=== PATIENT | female | born 1970 | race American Indian/Alaskan Native ===

== ENCOUNTER 2016-09-30 13:20 | Emergency (ER) | payer SELFPAY ==
[2016-09-30 13:44] VITALS: BP 124/80
[2016-09-30] MEDS ORDERED: TORADOL IM ONE (14:30)
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
== END 2016-09-30 15:29 | disposition home or self-care (01) ==
LOC: ED 13:20
DX: M62.838 Other muscle spasm (principal); M54.6 Pain in thoracic spine; E11.9 Type 2 diabetes mellitus without complications; F31.9 Bipolar disorder, unspecified; F20.9 Schizophrenia, unspecified; J45.909 Unspecified asthma, uncomplicated; Z98.51 Tubal ligation status
CPT/HCPCS: 96372; 99282; J1885

== ENCOUNTER 2016-11-11 12:47 | Emergency (ER) | payer SELFPAY ==
[2016-11-11 13:42] LABS: Bilirubin,Urine NEG (Negative); Blood,Urine NEG (Negative); Ketones,Urine TR mg/dL (Negative); Leukocyte Esterase,Urine NEG (Negative); Mucus,Urine 1+ /HPF; Nitrite,Urine NEG (Negative); Protein,Urine <15 mg/dL mg/dL (Negative)
[2016-11-11 14:08] LABS: Basophils % (Auto) 1.2 % (0.0-1.8); Eosinophils % (Auto) 5.7 % (0.0-4.3); Hematocrit 40.1 % (30.3-42.9); Hemoglobin 13.1 gm/dl (10.1-14.3); Mean Corpuscular HGB Conc 33 % (30-34); Mean Corpuscular Hemoglobin 31 pg (28-32); Mean Corpuscular Volume 96 fl (79-97); Platelet Count 269 K/mm3 (140-440); Red Blood Count 4.19 M/mm3 (3.65-5.03); Red Cell Distribution Width 13.6 % (13.2-15.2); White Blood Count 5.9 K/mm3 (4.5-11.0)
[2016-11-11 14:14] LABS: INR 0.95 (0.87-1.13)
[2016-11-11 14:15] LABS: Partial Thromboplastin Time 26.7 Sec. (24.2-36.6)
[2016-11-11 14:17] LABS: Alanine Aminotransferase 11 units/L (7-56); Albumin 3.4 g/dL (3.9-5); Albumin/Globulin Ratio 1.1 %; Alkaline Phosphatase 53 units/L (35-129); Anion Gap 15 mmol/L; Blood Urea Nitrogen 10 mg/dL (7-17); Calcium 8.5 mg/dL (8.4-10.2); Carbon Dioxide 24 mmol/L (22-30); Glucose 85 mg/dL (65-100); Lipase 37 units/L (13-60); Sodium 142 mmol/L (137-145); Total Protein 6.5 g/dL (6.3-8.2)
--- NOTE | 2016-11-11 17:37 | Emergency Department Report ---
ED Abdominal Pain HPI - General Chief Complaint: GI Bleed Stated Complaint: BLOOD IN STOOL/FLANK PAIN Time Seen by Provider: 11/11/16 15:16 Source: patient Mode of arrival: Ambulatory Limitations: No Limitations - History of Present Illness MD Complaint: flank pain -: Gradual Location: L flank Radiation: none Migration to: no migration Severity: moderate Severity scale (0 -10): 0 Quality: cramping, stabbing Consistency: intermittent, now resolved Improves With: nothing Worsens With: nothing Associated Symptoms: nausea. denies: vomiting, diarrhea, fever, chills, constipation, dysuria, hematemesis, hematochezia, melena, hematuria, anorexia - Related Data Home Medications Medication Instructions Recorded Confirmed Last Taken FLUoxetine [Prozac] 20 mg PO QDAY 04/26/13 11/04/14 10/05/14 Lurasidone HCl [Latuda] 20 mg PO HS 11/04/14 11/04/14 10/28/14 metFORMIN [Glucophage] 500 mg PO BID 11/04/14 11/04/14 08/10/14 Previous Rx's Medication Instructions Recorded Last Taken Type Albuterol Sulfate [Ventolin HFA] 2 puff IH Q4H PRN #1 hfa.aer.ad 11/04/14 Unknown Rx metFORMIN [Glucophage] 500 mg PO QAM #30 tablet 11/04/14 Unknown Rx Ibuprofen [Motrin] 600 mg PO Q8H PRN #15 tablet 09/30/16 Unknown Rx methOCARBAMOL [Robaxin TAB] 500 mg PO Q6H PRN #15 tablet 09/30/16 Unknown Rx Acetaminophen/Codeine [Tylenol 1 tab PO Q6H PRN #10 tab 11/11/16 Unknown Rx /Codeine # 3 tab] Allergies Allergy/AdvReac Type Severity Reaction Status Date / Time No Known Allergies Allergy Verified 08/13/15 09:19 ED Review of Systems ROS: Stated complaint: BLOOD IN STOOL/FLANK PAIN Other details as noted in HPI Constitutional: denies: chills, fever Eyes: denies: eye pain, eye discharge, vision change ENT: denies: ear pain, throat pain Respiratory: denies: cough, shortness of breath, wheezing Cardiovascular: denies: chest pain, palpitations Endocrine: no symptoms reported Gastrointestinal: denies: abdominal pain, nausea, diarrhea Genitourinary: denies: urgency, dysuria, discharge Musculoskeletal: denies: back pain, joint swelling, arthralgia Skin: denies: rash, lesions Neurological: denies: headache, weakness, paresthesias Psychiatric: denies: anxiety, depression Hematological/Lymphatic: denies: easy bleeding, easy bruising ED Past Medical Hx - Past Medical History Hx Diabetes: Yes Hx Psychiatric Treatment: Yes (BIPOLAR / SCHIZOPHRENIA) Hx Asthma: Yes Additional medical history: back problems - Surgical History Additional Surgical History: Tubal Ligation, x 1 - Social History Smoking Status: Never Smoker Substance Use Type: None - Medications Home Medications: Home Medications Medication Instructions Recorded Confirmed Last Taken Type FLUoxetine [Prozac] 20 mg PO QDAY 04/26/13 11/04/14 10/05/14 History Albuterol Sulfate [Ventolin HFA] 2 puff IH Q4H PRN #1 hfa.aer.ad 11/04/14 Unknown Rx Lurasidone HCl [Latuda] 20 mg PO HS 11/04/14 11/04/14 10/28/14 History metFORMIN [Glucophage] 500 mg PO BID 11/04/14 11/04/14 08/10/14 History metFORMIN [Glucophage] 500 mg PO QAM #30 tablet 11/04/14 Unknown Rx Ibuprofen [Motrin] 600 mg PO Q8H PRN #15 tablet 09/30/16 Unknown Rx methOCARBAMOL [Robaxin TAB] 500 mg PO Q6H PRN #15 tablet 09/30/16 Unknown Rx Acetaminophen/Codeine [Tylenol 1 tab PO Q6H PRN #10 tab 11/11/16 Unknown Rx /Codeine # 3 tab] ED Physical Exam - General Limitations: No Limitations General appearance: alert, in no apparent distress - Head Head exam: Present: atraumatic, normocephalic - Eye Eye exam: Present: normal appearance - ENT ENT exam: Present: mucous membranes moist - Neck Neck exam: Present: normal inspection - Respiratory Respiratory exam: Present: normal lung sounds bilaterally. Absent: respiratory distress - Cardiovascular Cardiovascular Exam: Present: regular rate, normal rhythm. Absent: systolic murmur, diastolic murmur, rubs, gallop - GI/Abdominal GI/Abdominal exam: Present: soft, normal bowel sounds. Absent: distended, tenderness, guarding, rebound - Extremities Exam Extremities exam: Present: normal inspection - Back Exam Back exam: Present: normal inspection - Neurological Exam Neurological exam: Present: alert, oriented X3 - Psychiatric Psychiatric exam: Present: normal affect, normal mood - Skin Skin exam: Present: warm, dry, intact, normal color. Absent: rash ED Course Vital Signs 11/11/16 11/11/16 11/11/16 13:03 15:30 15:54 Temperature 98 F Pulse Rate 60 58 L Respiratory 18 16 16 Rate Blood Pressure 117/89 Blood Pressure 97/54 [Left] O2 Sat by Pulse 100 100 100 Oximetry ED Medical Decision Making - Lab Data Result diagrams: 11/11/16 13:10 11/11/16 13:10 - Radiology Data Radiology results: report reviewed, image reviewed - Medical Decision Making patient doing well, pain is controlled, she wanted to make sure she was not , kub negative , labs negative , reexamination with no abdominal tenderness or guarding , tolerating po here in the er Critical care attestation.: If time is entered above; I have spent that time in minutes in the direct care of this critically ill patient, excluding procedure time. ED Disposition Clinical Impression: Flank pain Disposition: DISCHARGED TO HOME OR SELFCARE Is pt being admited?: No Does the pt Need Aspirin: No Condition: Good Instructions: Abdominal Pain (ED) Prescriptions: Acetaminophen/Codeine [Tylenol /Codeine # 3 tab] 1 tab PO Q6H PRN #10 tab PRN Reason: Pain , Severe (7-10) Referrals: PRIMARY CARE, [Primary Care Provider] - 3-5 Days Forms: Accompanied Note, Work/School Release Form(ED) Time of Disposition: 17:33
[2016-11-11 18:11] VITALS: BP 108/64
--- NOTE | 2016-11-12 10:31 | XRay Report ---
SUPINE KUB: History: Right flank pain. Abdominal pain. The abdominal gas pattern is unremarkable. No masses or organomegaly is identified and there is no gross evidence of free air or fluid. No significant soft tissue calcifications are noted. IMPRESSION: Unremarkable abdomen.
== END 2016-11-11 17:57 | disposition home or self-care (01) ==
LOC: ED 12:47
DX: R10.9 Unspecified abdominal pain (principal); E11.9 Type 2 diabetes mellitus without complications; F31.9 Bipolar disorder, unspecified; F20.9 Schizophrenia, unspecified; J45.909 Unspecified asthma, uncomplicated
CPT/HCPCS: 36415; 74000; 80053; 81001; 81025; 83690; 85025; 85610; 85730; 86850; 86900; 86901

== ENCOUNTER 2017-02-07 13:19 | Emergency (ER) | payer SELFPAY ==
[2017-02-07 13:42] VITALS: BP 152/95
[2017-02-07 15:48] LABS: Bilirubin,Urine NEG (Negative); Blood,Urine NEG (Negative); Ketones,Urine NEG (Negative); Leukocyte Esterase,Urine NEG (Negative); Mucus,Urine FEW /HPF; Nitrite,Urine NEG (Negative); Protein,Urine <15 mg/dL mg/dL (Negative)
[2017-02-07] MEDS ORDERED: MOTRIN PO ONE (17:13)
[2017-02-07] MEDS ORDERED: PROVENTIL IH ONE (17:13)
[2017-02-07 18:07] LABS: Basophils % (Auto) 0.9 % (0.0-1.8); Eosinophils % (Auto) 7.7 % (0.0-4.3); Hematocrit 40.7 % (30.3-42.9); Hemoglobin 13.8 gm/dl (10.1-14.3); Mean Corpuscular HGB Conc 34 % (30-34); Mean Corpuscular Hemoglobin 32 pg (28-32); Mean Corpuscular Volume 93 fl (79-97); Platelet Count 232 K/mm3 (140-440); Red Blood Count 4.37 M/mm3 (3.65-5.03); Red Cell Distribution Width 13.5 % (13.2-15.2); White Blood Count 5.8 K/mm3 (4.5-11.0)
[2017-02-07 18:16] LABS: Anion Gap 18 mmol/L; BUN/Creatinine Ratio 17.14; Blood Urea Nitrogen 12 mg/dL (7-17); Calcium 9.1 mg/dL (8.4-10.2); Carbon Dioxide 25 mmol/L (22-30); Chloride 101.6 mmol/L (98-107); Glucose 79 mg/dL (65-100); Potassium 4.4 mmol/L (3.6-5.0); Sodium 140 mmol/L (137-145)
--- NOTE | 2017-02-07 19:00 | Emergency Department Report ---
- General Chief Complaint: Upper Respiratory Infection Stated Complaint: GENERAL WEAKNESS Time Seen by Provider: 02/07/17 17:12 Source: patient Mode of arrival: Ambulatory Limitations: No Limitations - History of Present Illness MD Complaint: cough - Related Data Home Medications Medication Instructions Recorded Confirmed Last Taken FLUoxetine [Prozac] 20 mg PO QDAY 04/26/13 11/04/14 10/05/14 Lurasidone HCl [Latuda] 20 mg PO HS 11/04/14 11/04/14 10/28/14 metFORMIN [Glucophage] 500 mg PO BID 11/04/14 11/04/14 08/10/14 Previous Rx's Medication Instructions Recorded Last Taken Type Albuterol Sulfate [Ventolin HFA] 2 puff IH Q4H PRN #1 hfa.aer.ad 11/04/14 Unknown Rx metFORMIN [Glucophage] 500 mg PO QAM #30 tablet 11/04/14 Unknown Rx Ibuprofen [Motrin] 600 mg PO Q8H PRN #15 tablet 09/30/16 Unknown Rx methOCARBAMOL [Robaxin TAB] 500 mg PO Q6H PRN #15 tablet 09/30/16 Unknown Rx Acetaminophen/Codeine [Tylenol 1 tab PO Q6H PRN #10 tab 11/11/16 Unknown Rx /Codeine # 3 tab] ALBUTEROL Inhaler [ProAir HFA 2 puff IH QID PRN #1 inhalation 02/07/17 Unknown Rx Inhaler] Azithromycin [Zithromax Z-STEPHANY] 250 mg PO QDAY #6 tablet 02/07/17 Unknown Rx Naproxen [Naprosyn TAB] 375 mg PO BID PRN #15 tablet 02/07/17 Unknown Rx Prednisone [predniSONE 5 mg (6-Day 5 mg PO .TAPER #1 tab.ds.pk 02/07/17 Unknown Rx Pack, 21 Tabs)] guaiFENesin DM [Robitussin Dm] 10 ml PO Q6HR PRN #1 bottle 02/07/17 Unknown Rx Allergies Allergy/AdvReac Type Severity Reaction Status Date / Time No Known Allergies Allergy Verified 08/13/15 09:19 ED Review of Systems ROS: Stated complaint: GENERAL WEAKNESS Other details as noted in HPI ED Past Medical Hx - Past Medical History Hx Diabetes: Yes Hx Psychiatric Treatment: Yes (BIPOLAR / SCHIZOPHRENIA) Hx Asthma: Yes Additional medical history: back problems - Surgical History Additional Surgical History: Tubal Ligation, x 1 - Social History Smoking Status: Never Smoker Substance Use Type: None - Medications Home Medications: Home Medications Medication Instructions Recorded Confirmed Last Taken Type FLUoxetine [Prozac] 20 mg PO QDAY 04/26/13 11/04/14 10/05/14 History Albuterol Sulfate [Ventolin HFA] 2 puff IH Q4H PRN #1 hfa.aer.ad 11/04/14 Unknown Rx Lurasidone HCl [Latuda] 20 mg PO HS 11/04/14 11/04/14 10/28/14 History metFORMIN [Glucophage] 500 mg PO BID 11/04/14 11/04/14 08/10/14 History metFORMIN [Glucophage] 500 mg PO QAM #30 tablet 11/04/14 Unknown Rx Ibuprofen [Motrin] 600 mg PO Q8H PRN #15 tablet 09/30/16 Unknown Rx methOCARBAMOL [Robaxin TAB] 500 mg PO Q6H PRN #15 tablet 09/30/16 Unknown Rx Acetaminophen/Codeine [Tylenol 1 tab PO Q6H PRN #10 tab 11/11/16 Unknown Rx /Codeine # 3 tab] ALBUTEROL Inhaler [ProAir HFA 2 puff IH QID PRN #1 inhalation 02/07/17 Unknown Rx Inhaler] Azithromycin [Zithromax Z-STEPHANY] 250 mg PO QDAY #6 tablet 02/07/17 Unknown Rx Naproxen [Naprosyn TAB] 375 mg PO BID PRN #15 tablet 02/07/17 Unknown Rx Prednisone [predniSONE 5 mg (6-Day 5 mg PO .TAPER #1 tab.ds.pk 02/07/17 Unknown Rx Pack, 21 Tabs)] guaiFENesin DM [Robitussin Dm] 10 ml PO Q6HR PRN #1 bottle 02/07/17 Unknown Rx ED Physical Exam - General Limitations: No Limitations ED Course Vital Signs 02/07/17 02/07/17 13:35 17:52 Temperature 98.5 F Pulse Rate 95 H Pulse Rate [ 52 L Bilateral] Pulse Rate [ 74 Throughout] Respiratory 18 Rate Respiratory 18 Rate [Bilateral ] Respiratory 18 Rate [ Throughout] Blood Pressure 152/95 O2 Sat by Pulse 100 Oximetry ED Medical Decision Making - Lab Data Result diagrams: 02/07/17 17:47 02/07/17 17:47 - Medical Decision Making A/P: Acute bronchitis, asthma exacerbation 1-prednisone, albuterol, azithromycin, naproxen 2-xray unremarkable 3-labwork unremarkable Critical care attestation.: If time is entered above; I have spent that time in minutes in the direct care of this critically ill patient, excluding procedure time. ED Disposition Clinical Impression: Acute bronchitis Qualifiers: Bronchitis organism: unspecified organism Qualified Code(s): J20.9 - Acute bronchitis, unspecified Reactive airway disease Qualifiers: Asthma severity: mild intermittent Asthma complication type: uncomplicated Qualified Code(s): J45.20 - Mild intermittent asthma, uncomplicated Disposition: TO HOME OR SELFCARE Is pt being admited?: No Does the pt Need Aspirin: No Condition: Stable Instructions: Acute Bronchitis (ED), Reactive Airways Disease (ED) Prescriptions: ALBUTEROL Inhaler [ProAir HFA Inhaler] 2 puff IH QID PRN #1 inhalation PRN Reason: Shortness Of Breath Azithromycin [Zithromax Z-STEPHANY] 250 mg PO QDAY #6 tablet guaiFENesin DM [Robitussin Dm] 10 ml PO Q6HR PRN #1 bottle PRN Reason: Cough Naproxen [Naprosyn TAB] 375 mg PO BID PRN #15 tablet PRN Reason: Cough Prednisone [predniSONE 5 mg (6-Day Pack, 21 Tabs)] 5 mg PO .TAPER #1 tab.ds.pk Referrals: [facility] [Provider Group] - 3-5 Days [facility] [Outside] - 3-5 Days Forms: Accompanied Note, Work/School Release Form(ED) Time of Disposition: 18:57
--- NOTE | 2017-02-08 07:31 | XRay Report ---
CHEST 2 VIEWS INDICATION: Worsening cough. COMPARISON: None similar. FINDINGS: PA and lateral chest radiographs demonstrate normal cardiomediastinal silhouette. Clear lungs. Slight mid thoracic spine degenerative endplate spurring. CONCLUSION: No acute disease in the chest. Thank you for the opportunity to participate in this patient's care.
== END 2017-02-07 19:05 | disposition home or self-care (01) ==
LOC: ED 13:19
DX: J45.909 Unspecified asthma, uncomplicated (principal); J20.9 Acute bronchitis, unspecified; E11.9 Type 2 diabetes mellitus without complications; F31.9 Bipolar disorder, unspecified; F20.9 Schizophrenia, unspecified; Z98.51 Tubal ligation status
CPT/HCPCS: 36415; 71020; 80048; 81001; 81025; 83735; 85025; 94640; 99284

== ENCOUNTER 2017-06-19 15:20 | Emergency (ER) | payer SELFPAY ==
[2017-06-19 16:51] VITALS: BP 114/74
== END 2017-06-19 22:35 | disposition left against medical advice (07) ==
LOC: ED 15:20
DX: T14.8XXA Other injury of unspecified body region, initial encounter (principal); X58.XXXA Exposure to other specified factors, initial encounter; Y93.89 Activity, other specified; Y92.89 Other specified places as the place of occurrence of the external cause; Y99.8 Other external cause status; Z53.21 Procedure and treatment not carried out due to patient leaving prior to being seen by health care provider

== ENCOUNTER 2017-07-10 13:01 | Emergency (ER) | payer SELFPAY ==
[2017-07-10 14:35] VITALS: BP 114/54
[2017-07-10] MEDS ORDERED: TORADOL IM ONE (19:33)
--- NOTE | 2017-07-10 19:34 | Emergency Department Report ---
ED Back Pain/Injury HPI - General Chief Complaint: Extremity Injury, Lower Stated Complaint: HIP PAIN Time Seen by Provider: 07/10/17 19:06 Source: patient Limitations: No Limitations - History of Present Illness Initial Comments: This is a 47-year-old female nontoxic, well nourished in appearance, no acute signs of distress presents to the ED with c/o of chronic intermittent low back pain. Patient stated she had several rounds of xrays and all within normal limits. Patient denies any trauma to the region. Patient denies follow-up with PCP for possible MRI as she stated symptoms resolves after medical treatment. Patient stated that symptoms of low back pain radiates towards her left hip and left lower extremity. Patient denies any trauma to the region. Patient also stated had a headache that she describes as aching diffusely but there is headache has subsided. Patient denies thunderclap headache. Denies any blurry vision or visual changes. Patient denies any bladder or bowel instability. Patient denies any chest pain, shortness of breath, dysuria, polyuria, hematuria , fever, chills, nausea, vomiting, headache, stiff neck, numbness or tingling. Patient describes pain as aching with level of 8 out of 10. Patient states symptoms are worse the past 4 days. 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 Patient denies any drug allergies. Past medical history includes diabetes, asthma, psychiatric. MD Complaint: back pain -: days(s) (4) Similar Symptoms Previously: Yes Place: work Radiation: left leg Severity: mild Severity scale (0 -10): 8 Quality: aching Consistency: constant Improves With: immobilization, supine, sitting upright Worsens With: movement, walking Associated Symptoms: denies other symptoms. denies: confusion, weakness, chest pain, numbness, difficulty walking, cough, difficulty urinating, diaphoresis, incontinence, fever/chills, constipation, headaches, abdominal pain, loss of appetite, malaise, nausea/vomiting, rash, seizure, shortness of breath, syncope - Related Data Home Medications Medication Instructions Recorded Confirmed Last Taken FLUoxetine [Prozac] 20 mg PO QDAY 04/26/13 11/04/14 10/05/14 Lurasidone HCl [Latuda] 20 mg PO HS 05/26/15 05/26/15 05/19/15 metFORMIN [Glucophage] 500 mg PO BID 11/04/14 11/04/14 08/10/14 Previous Rx's Medication Instructions Recorded Last Taken Type Albuterol Sulfate [Ventolin HFA] 2 puff IH Q4H PRN #1 hfa.aer.ad 11/04/14 Unknown Rx metFORMIN [Glucophage] 500 mg PO QAM #30 tablet 11/04/14 Unknown Rx Ibuprofen [Motrin] 600 mg PO Q8H PRN #15 tablet 09/30/16 Unknown Rx methOCARBAMOL [Robaxin TAB] 500 mg PO Q6H PRN #15 tablet 09/30/16 Unknown Rx Acetaminophen/Codeine [Tylenol 1 tab PO Q6H PRN #10 tab 11/11/16 Unknown Rx /Codeine # 3 tab] ALBUTEROL Inhaler [ProAir HFA 2 puff IH QID PRN #1 inhalation 02/07/17 Unknown Rx Inhaler] Azithromycin [Zithromax Z-STEPHANY] 250 mg PO QDAY #6 tablet 02/07/17 Unknown Rx Naproxen [Naprosyn TAB] 375 mg PO BID PRN #15 tablet 02/07/17 Unknown Rx Prednisone [predniSONE 5 mg (6-Day 5 mg PO .TAPER #1 tab.ds.pk 02/07/17 Unknown Rx Pack, 21 Tabs)] guaiFENesin DM [Robitussin Dm] 10 ml PO Q6HR PRN #1 bottle 02/07/17 Unknown Rx Cyclobenzaprine [Flexeril] 10 mg PO QHS PRN #7 tablet 07/10/17 Unknown Rx Ibuprofen [Motrin] 600 mg PO Q8H PRN #30 tablet 07/10/17 Unknown Rx Allergies Allergy/AdvReac Type Severity Reaction Status Date / Time No Known Allergies Allergy Verified 08/13/15 09:19 ED Review of Systems ROS: Stated complaint: HIP PAIN Other details as noted in HPI Constitutional: denies: chills, fever Eyes: denies: eye pain, eye discharge, vision change ENT: denies: ear pain, throat pain Respiratory: denies: cough, shortness of breath, wheezing Cardiovascular: denies: chest pain, palpitations Endocrine: no symptoms reported Gastrointestinal: denies: abdominal pain, nausea, diarrhea Genitourinary: denies: urgency, dysuria, discharge Musculoskeletal: back pain. denies: joint swelling, arthralgia Skin: denies: rash, lesions Neurological: denies: headache, weakness, paresthesias Psychiatric: denies: anxiety, depression Hematological/Lymphatic: denies: easy bleeding, easy bruising ED Past Medical Hx - Past Medical History Previous Medical History?: Yes Hx Diabetes: Yes Hx Psychiatric Treatment: Yes (BIPOLAR / SCHIZOPHRENIA) Hx Asthma: Yes Additional medical history: back problems - Surgical History Past Surgical History?: Yes Additional Surgical History: Tubal Ligation, x 1 - Social History Smoking Status: Never Smoker Substance Use Type: Alcohol - Medications Home Medications: Home Medications Medication Instructions Recorded Confirmed Last Taken Type FLUoxetine [Prozac] 20 mg PO QDAY 04/26/13 11/04/14 10/05/14 History Albuterol Sulfate [Ventolin HFA] 2 puff IH Q4H PRN #1 hfa.aer.ad 11/04/14 Unknown Rx Lurasidone HCl [Latuda] 20 mg PO HS 11/04/14 11/04/14 10/28/14 History metFORMIN [Glucophage] 500 mg PO BID 11/04/14 11/04/14 08/10/14 History metFORMIN [Glucophage] 500 mg PO QAM #30 tablet 11/04/14 Unknown Rx Ibuprofen [Motrin] 600 mg PO Q8H PRN #15 tablet 09/30/16 Unknown Rx methOCARBAMOL [Robaxin TAB] 500 mg PO Q6H PRN #15 tablet 09/30/16 Unknown Rx Acetaminophen/Codeine [Tylenol 1 tab PO Q6H PRN #10 tab 11/11/16 Unknown Rx /Codeine # 3 tab] ALBUTEROL Inhaler [ProAir HFA 2 puff IH QID PRN #1 inhalation 02/07/17 Unknown Rx Inhaler] Azithromycin [Zithromax Z-STEPHANY] 250 mg PO QDAY #6 tablet 02/07/17 Unknown Rx Naproxen [Naprosyn TAB] 375 mg PO BID PRN #15 tablet 02/07/17 Unknown Rx Prednisone [predniSONE 5 mg (6-Day 5 mg PO .TAPER #1 tab.ds.pk 02/07/17 Unknown Rx Pack, 21 Tabs)] guaiFENesin DM [Robitussin Dm] 10 ml PO Q6HR PRN #1 bottle 02/07/17 Unknown Rx Cyclobenzaprine [Flexeril] 10 mg PO QHS PRN #7 tablet 07/10/17 Unknown Rx Ibuprofen [Motrin] 600 mg PO Q8H PRN #30 tablet 07/10/17 Unknown Rx ED Physical Exam - General Limitations: No Limitations General appearance: alert, in no apparent distress - Head Head exam: Present: atraumatic, normocephalic - Eye Eye exam: Present: normal appearance - ENT ENT exam: Present: mucous membranes moist - Neck Neck exam: Present: normal inspection, full ROM. Absent: tenderness, meningismus, lymphadenopathy, thyromegaly - Respiratory Respiratory exam: Present: normal lung sounds bilaterally. Absent: respiratory distress, wheezes, rales, rhonchi, stridor, chest wall tenderness, accessory muscle use, decreased breath sounds, prolonged expiratory - Cardiovascular Cardiovascular Exam: Present: regular rate, normal rhythm, normal heart sounds. Absent: bradycardia, tachycardia, irregular rhythm, systolic murmur, diastolic murmur, rubs, gallop - GI/Abdominal GI/Abdominal exam: Present: soft, normal bowel sounds. Absent: distended, tenderness, guarding, rebound, rigid, diminished bowel sounds - Rectal Rectal exam: Present: deferred - Extremities Exam Extremities exam: Present: normal inspection, full ROM, normal capillary refill. Absent: tenderness, pedal edema, joint swelling, calf tenderness - Expanded Lower Extremity Exam Left Hip exam: Present: normal inspection, full ROM, external rotation, internal rotation, pelvic stability. Absent: tenderness, swelling, abrasion, laceration , ecchymosis, deformity, crepidus, dislocation, erythema, shortening Upper Leg exam: Present: normal inspection, full ROM Knee exam: Present: normal inspection, full ROM, full knee extension Lower Leg exam: Present: normal inspection, full ROM. Absent: Eduar's sign Ankle exam: Present: normal inspection, full ROM Foot/Toe exam: Present: normal inspection, full ROM Neuro vascular tendon exam: Present: no vascular compromise. Absent: pulse deficit, abnormal cap refill, motor deficit, sensory deficit, tendon deficit, extremity cold to touch, pallor, abnormal 2-point discrimination, decreased fine /light touch, foot drop, peroneal nerve deficit, significant pain with passive ROM of distal joint Gait: Positive: observed and normal - Back Exam Back exam: Present: normal inspection, full ROM, paraspinal tenderness (lumbar region). Absent: tenderness, CVA tenderness (R), CVA tenderness (L), vertebral tenderness, rash noted - Expanded Back Exam Expanded Back exam: Absent: saddle anesthesia Back exam: Negative Straight Leg Raising: Left, Right - Neurological Exam Neurological exam: Present: alert, oriented X3 - Psychiatric Psychiatric exam: Present: normal affect, normal mood - Skin Skin exam: Present: warm, dry, intact, normal color. Absent: rash ED Course Vital Signs 07/10/17 14:32 Temperature 98.3 F Pulse Rate 65 Respiratory 16 Rate Blood Pressure 114/54 O2 Sat by Pulse 100 Oximetry ED Medical Decision Making - Medical Decision Making this is a 47-year-old female that presents with low back strain, lumbar radiculopathy, and diabetic neuropathy. Patient is stable and was examined by me. Patient received Toradol 30 mg IM in the ED which patient states symptoms has resolved and has subsided. Patient states the symptoms are intermittent chronically. I will treat patient with Flexeril and Motrin discharge. Patient was instructed not to operate any machinery while taking Flexeril due to drowsiness. Patient was instructed Follow-up with a primary care doctor in 3-5 days or if symptoms worsen and continue return to emergency room as soon as possible. At time time of discharge, the patient does not seem toxic or ill in appearance. No acute signs of distress noted. Patient agrees to discharge treatment plan of care. No further questions noted by the patient. Critical care attestation.: If time is entered above; I have spent that time in minutes in the direct care of this critically ill patient, excluding procedure time. ED Disposition Clinical Impression: Lumbar radiculopathy Low back strain Qualifiers: Encounter type: initial encounter Qualified Code(s): S39.012A - Strain of muscle, fascia and tendon of lower back, initial encounter Diabetic neuropathy Qualifiers: Diabetes mellitus type: other specified (including EDDIE) Diabetes mellitus complication detail: with other neurological complication Qualified Code(s): E13.49 - Other specified diabetes mellitus with other diabetic neurological complication Disposition: -01 TO HOME OR SELFCARE Is pt being admited?: No Does the pt Need Aspirin: No Condition: Stable Instructions: Low Back Strain (ED), Cyclobenzaprine (By mouth), Ibuprofen (By mouth), Diabetic Neuropathy (ED), Lumbar Radiculopathy (ED) Additional Instructions: Follow-up with your primary care doctor in 3-5 days or if symptoms worsen such as bladder or bowel stability, chest pain, short of breath, numbness or tingling sensation in extremities, headache, dizziness, visual changes, nausea vomiting, or abdominal pain, return back to emergency room as was possible. Take ibuprofen and Flexeril as prescribed. Do not operate heavy machinery while taking Flexeril due to sedation Prescriptions: Cyclobenzaprine [Flexeril] 10 mg PO QHS PRN #7 tablet PRN Reason: Muscle Spasm Ibuprofen [Motrin] 600 mg PO Q8H PRN #30 tablet PRN Reason: Pain Referrals: PRIMARY CARE, [Referring] - 3-5 Days LILIYA IZQUIERDO MD [Staff Physician] - 3-5 Days [facility] [Outside] - 3-5 Days [facility] [Outside] - 3-5 Days Forms: Work/School Release Form(ED)
== END 2017-07-10 19:50 | disposition home or self-care (01) ==
LOC: ED 13:01
DX: S39.012A Strain of muscle, fascia and tendon of lower back, initial encounter (principal); E13.49 Other specified diabetes mellitus with other diabetic neurological complication; F31.9 Bipolar disorder, unspecified; F20.9 Schizophrenia, unspecified; J45.909 Unspecified asthma, uncomplicated; Z98.51 Tubal ligation status; X58.XXXA Exposure to other specified factors, initial encounter; Y93.89 Activity, other specified; Y92.89 Other specified places as the place of occurrence of the external cause; Y99.8 Other external cause status
CPT/HCPCS: 96372; 99282; J1885

== ENCOUNTER 2017-11-29 20:02 | Emergency (ER) | payer SELFPAY ==
[2017-11-29 20:14] VITALS: BP 113/71
--- NOTE | 2017-11-29 23:41 | Emergency Department Report ---
ED Extremity Problem HPI - General Chief complaint: Extremity Problem,Nontraumatic Stated complaint: LT HEEL PAIN Time Seen by Provider: 11/29/17 23:25 Source: patient Mode of arrival: Ambulatory Limitations: No Limitations - History of Present Illness Initial comments: 47-year-old -[place] female comes in complaining of left foot pain 2 weeks. Patient reports is the same pain that she felt when she had plantar fasciitis. Patient reports that most of the pain is in the back heel of her foot in the instep. Patient reports that she is a diabetic but is not currently on any medication as she doesn't have any insurance. Patient denies any trauma to the foot did not stepping on anything or been hard. Patient reports she has not taken any pain medications for this at this time. Patient also complains of a bump on her pubic symphysis that has a foul smell and now was opened. Patient denies any fever chills no nausea no vomiting. Location: left Severity scale (0 -10): 10 Consistency: constant Improves with: rest Worsens with: weight bearing, walking - Related Data Home Medications Medication Instructions Recorded Confirmed Last Taken FLUoxetine [Prozac] 20 mg PO QDAY 04/26/13 11/04/14 10/05/14 Lurasidone HCl [Latuda] 20 mg PO HS 11/04/14 11/04/14 10/28/14 metFORMIN [Glucophage] 500 mg PO BID 11/04/14 11/04/14 08/10/14 Previous Rx's Medication Instructions Recorded Last Taken Type Albuterol Sulfate [Ventolin HFA] 2 puff IH Q4H PRN #1 hfa.aer.ad 11/04/14 Unknown Rx metFORMIN [Glucophage] 500 mg PO QAM #30 tablet 11/04/14 Unknown Rx Ibuprofen [Motrin] 600 mg PO Q8H PRN #15 tablet 09/30/16 Unknown Rx methOCARBAMOL [Robaxin TAB] 500 mg PO Q6H PRN #15 tablet 09/30/16 Unknown Rx Acetaminophen/Codeine [Tylenol 1 tab PO Q6H PRN #10 tab 11/11/16 Unknown Rx /Codeine # 3 tab] ALBUTEROL Inhaler [ProAir HFA 2 puff IH QID PRN #1 inhalation 02/07/17 Unknown Rx Inhaler] Azithromycin [Zithromax Z-STEPHANY] 250 mg PO QDAY #6 tablet 02/07/17 Unknown Rx Naproxen [Naprosyn TAB] 375 mg PO BID PRN #15 tablet 02/07/17 Unknown Rx Prednisone [predniSONE 5 mg (6-Day 5 mg PO .TAPER #1 tab.ds.pk 02/07/17 Unknown Rx Pack, 21 Tabs)] guaiFENesin DM [Robitussin Dm] 10 ml PO Q6HR PRN #1 bottle 02/07/17 Unknown Rx Cyclobenzaprine [Flexeril] 10 mg PO QHS PRN #7 tablet 07/10/17 Unknown Rx Ibuprofen [Motrin] 600 mg PO Q8H PRN #30 tablet 07/10/17 Unknown Rx Cephalexin [Keflex] 250 mg PO Q6HR #40 capsule 11/30/17 Unknown Rx Ibuprofen [Motrin 800 MG tab] 800 mg PO Q8HR #30 tablet 11/30/17 Unknown Rx Allergies Allergy/AdvReac Type Severity Reaction Status Date / Time No Known Allergies Allergy Verified 08/13/15 09:19 ED Review of Systems ROS: Stated complaint: LT HEEL PAIN Other details as noted in HPI Constitutional: denies: chills, fever Eyes: denies: eye pain, eye discharge, vision change Musculoskeletal: arthralgia (bottom of left foot and heel) Skin: lesions (bump on suprapubic) Neurological: denies: headache, weakness, paresthesias Psychiatric: denies: anxiety, depression ED Past Medical Hx - Past Medical History Previous Medical History?: Yes Hx Diabetes: Yes Hx Psychiatric Treatment: Yes (BIPOLAR / SCHIZOPHRENIA) Hx Asthma: Yes Additional medical history: back problems - Surgical History Past Surgical History?: Yes Additional Surgical History: Tubal Ligation, x 1 - Social History Smoking Status: Never Smoker Substance Use Type: Alcohol - Medications Home Medications: Home Medications Medication Instructions Recorded Confirmed Last Taken Type FLUoxetine [Prozac] 20 mg PO QDAY 04/26/13 11/04/14 10/05/14 History Albuterol Sulfate [Ventolin HFA] 2 puff IH Q4H PRN #1 hfa.aer.ad 11/04/14 Unknown Rx Lurasidone HCl [Latuda] 20 mg PO HS 11/04/14 11/04/14 10/28/14 History metFORMIN [Glucophage] 500 mg PO BID 11/04/14 11/04/14 08/10/14 History metFORMIN [Glucophage] 500 mg PO QAM #30 tablet 11/04/14 Unknown Rx Ibuprofen [Motrin] 600 mg PO Q8H PRN #15 tablet 09/30/16 Unknown Rx methOCARBAMOL [Robaxin TAB] 500 mg PO Q6H PRN #15 tablet 09/30/16 Unknown Rx Acetaminophen/Codeine [Tylenol 1 tab PO Q6H PRN #10 tab 11/11/16 Unknown Rx /Codeine # 3 tab] ALBUTEROL Inhaler [ProAir HFA 2 puff IH QID PRN #1 inhalation 02/07/17 Unknown Rx Inhaler] Azithromycin [Zithromax Z-STEPHANY] 250 mg PO QDAY #6 tablet 02/07/17 Unknown Rx Naproxen [Naprosyn TAB] 375 mg PO BID PRN #15 tablet 02/07/17 Unknown Rx Prednisone [predniSONE 5 mg (6-Day 5 mg PO .TAPER #1 tab.ds.pk 02/07/17 Unknown Rx Pack, 21 Tabs)] guaiFENesin DM [Robitussin Dm] 10 ml PO Q6HR PRN #1 bottle 02/07/17 Unknown Rx Cyclobenzaprine [Flexeril] 10 mg PO QHS PRN #7 tablet 07/10/17 Unknown Rx Ibuprofen [Motrin] 600 mg PO Q8H PRN #30 tablet 07/10/17 Unknown Rx Cephalexin [Keflex] 250 mg PO Q6HR #40 capsule 11/30/17 Unknown Rx Ibuprofen [Motrin 800 MG tab] 800 mg PO Q8HR #30 tablet 11/30/17 Unknown Rx ED Physical Exam - General Limitations: No Limitations General appearance: alert, in no apparent distress - Head Head exam: Present: atraumatic, normocephalic - Expanded Lower Extremity Exam Left Hip exam: Present: normal inspection, full ROM. Absent: tenderness Upper Leg exam: Present: normal inspection, full ROM. Absent: tenderness Knee exam: Present: normal inspection, full ROM. Absent: tenderness Lower Leg exam: Present: normal inspection, full ROM. Absent: tenderness Foot/Toe exam: Present: full ROM, tenderness (plantar). Absent: swelling, abrasion, laceration, ecchymosis, deformity, erythema, puncture wound Neuro vascular tendon exam: Present: no vascular compromise Gait: Positive: antalgic - Neurological Exam Neurological exam: Present: alert, oriented X3 - Psychiatric Psychiatric exam: Present: normal affect, normal mood - Expanded Skin Exam Expanded Distribution of rash: genitals (suprapubic) Description of rash: Present: size (pimple size opening) ED Course Vital Signs 11/29/17 20:10 Temperature 97.9 F Pulse Rate 66 Respiratory 18 Rate Blood Pressure 113/71 O2 Sat by Pulse 10 L Oximetry ED Medical Decision Making - Medical Decision Making Patient's been evaluated by this provider fast track. Ibuprofen ordered a pain management of left foot. Would discharge patient ibuprofen for pain management of her left foot. I will place patient on antibiotics for her for mouth abscess to her suprapubic area. Discussed strongly with patient that she needs to follow-up with [facility] for management of her diabetes and chronic disease management. Patient verbalized understanding. Critical care attestation.: If time is entered above; I have spent that time in minutes in the direct care of this critically ill patient, excluding procedure time. ED Disposition Clinical Impression: Carbuncle, Arch pain of left foot Disposition: [id number]-01 TO HOME OR SELFCARE Is pt being admited?: No Does the pt Need Aspirin: No Condition: Stable Instructions: Furunculosis and Carbunculosis (ED), Arthralgia (ED) Additional Instructions: Complete antibiotic as prescribed take pain medication as needed follow-up with [facility]. Prescriptions: Cephalexin [Keflex] 250 mg PO Q6HR #40 capsule Ibuprofen [Motrin 800 MG tab] 800 mg PO Q8HR #30 tablet Referrals: ANTOINE CRUZ MD [Primary Care Provider] - 3-5 Days [facility] [Provider Group] - 3-5 Days Forms: Work/School Release Form(ED)
[2017-11-29] MEDS ORDERED: TRIMOX PO ONE (23:50)
[2017-11-30] MEDS ORDERED: MOTRIN PO ONE (00:27)
== END 2017-11-30 00:50 | disposition home or self-care (01) ==
LOC: ED 20:02
DX: L02.632 Carbuncle of left foot (principal); E11.9 Type 2 diabetes mellitus without complications; F31.9 Bipolar disorder, unspecified; F20.9 Schizophrenia, unspecified; J45.909 Unspecified asthma, uncomplicated; Z98.51 Tubal ligation status
CPT/HCPCS: 99282

== ENCOUNTER 2018-07-20 07:42 | Emergency (ER) | payer SELFPAY ==
[2018-07-20 07:47] VITALS: BP 137/81
[2018-07-20] MEDS ORDERED: ROBITUSSIN PO ONE (08:12)
[2018-07-20] MEDS ORDERED: DELTASONE PO ONE (08:13)
--- NOTE | 2018-07-20 08:42 | XRay Report ---
ROUTINE CHEST, TWO VIEWS: HISTORY: Productive cough. The trachea, heart, mediastinal contour, lung mai and bony thorax are unremarkable. IMPRESSION: Unremarkable chest x-ray. No change since 02/07/17.
--- NOTE | 2018-07-20 08:49 | Emergency Department Report ---
Minor Respiratory - HPI Chief Complaint: Sore Throat Stated Complaint: SORE THROAT COUGHING Time Seen by Provider: 07/20/18 08:01 Duration: 4 Days Pain Location: Throat Severity: mild Minor Respiratory: Yes Able to Tolerate Fluids, Yes Cough, No Rhinorrhea, No Sore Throat, No Ear Pain, No Sick Contacts, No Hemoptysis, No Chest Pain, No Shortness of Breath, No Fever Other History: 48-year-old female presents with greenish productive cough with sore throat has been going on for several days. Patient denies fevers/nausea vomiting/abdominal pain/chest pain or shortness of breath. Patient mentions history of asthma as a child. ED Review of Systems ROS: Stated complaint: SORE THROAT COUGHING Other details as noted in HPI Comment: All other systems reviewed and negative ED Past Medical Hx - Past Medical History Hx Diabetes: Yes Hx Psychiatric Treatment: Yes (BIPOLAR / SCHIZOPHRENIA) Hx Asthma: Yes Additional medical history: back problems - Surgical History Additional Surgical History: Tubal Ligation, x 1 - Social History Smoking Status: Never Smoker Substance Use Type: None - Medications Home Medications: Home Medications Medication Instructions Recorded Confirmed Last Taken Type FLUoxetine [Prozac] 20 mg PO QDAY 04/26/13 11/04/14 10/05/14 History Albuterol Sulfate [Ventolin HFA] 2 puff IH Q4H PRN #1 hfa.aer.ad 11/04/14 Unknown Rx Lurasidone HCl [Latuda] 20 mg PO HS 11/04/14 11/04/14 10/28/14 History metFORMIN [Glucophage] 500 mg PO BID 11/04/14 11/04/14 08/10/14 History metFORMIN [Glucophage] 500 mg PO QAM #30 tablet 11/04/14 Unknown Rx Ibuprofen [Motrin] 600 mg PO Q8H PRN #15 tablet 09/30/16 Unknown Rx methOCARBAMOL [Robaxin TAB] 500 mg PO Q6H PRN #15 tablet 09/30/16 Unknown Rx Acetaminophen/Codeine [Tylenol 1 tab PO Q6H PRN #10 tab 11/11/16 Unknown Rx /Codeine # 3 tab] Naproxen [Naprosyn TAB] 375 mg PO BID PRN #15 tablet 02/07/17 Unknown Rx Prednisone [predniSONE 5 mg (6-Day 5 mg PO .TAPER #1 tab.ds.pk 02/07/17 Unknown Rx Pack, 21 Tabs)] guaiFENesin DM [Robitussin Dm] 10 ml PO Q6HR PRN #1 bottle 02/07/17 Unknown Rx Cyclobenzaprine [Flexeril] 10 mg PO QHS PRN #7 tablet 07/10/17 Unknown Rx Ibuprofen [Motrin] 600 mg PO Q8H PRN #30 tablet 07/10/17 Unknown Rx Ibuprofen [Motrin 800 MG tab] 800 mg PO Q8HR #30 tablet 11/30/17 Unknown Rx cephALEXin [Keflex] 250 mg PO Q6HR #40 capsule 11/30/17 Unknown Rx HYDROcodone/ACETAMINOPHEN 15 ml PO Q6HR PRN #150 solution 06/02/18 Unknown Rx [Hydrocodon-Acetamin 7.5-325/15] ALBUTEROL Inhaler (OR & NICU) 2 puff IH QID PRN #1 inhalation 07/20/18 Unknown Rx [ProAir HFA Inhaler] Azithromycin [Zithromax Z-STEPHANY] 250 mg PO QDAY #6 tablet 07/20/18 Unknown Rx Nystas/Diphen/Xyl Visc/Mylanta 15 ml MM Q4H #120 ml 07/20/18 Unknown Rx [Magic Mouthwash] prednisoLONE [Prednisolone] 45 mg PO DAILY 5 Days solution 07/20/18 Unknown Rx Minor Respiratory Exam - Exam General: Vital signs noted. No distress. Alert and acting appropriately. HEENT: Yes Moist Mucous Membranes, No Pharyngeal Erythema, No Pharyngeal Exudates, No Rhinorrhea, No Conjuctival Injection, No Frontal Tenderness, No Maxillary Tenderness Ear: Neither TM Bulge, Neither TM Erythema, Neither EAC Pain, Neither EAC Discharge Neck: Yes Supple, No Adenopathy Lungs: Yes Good Air Exchange, No Wheezes, No Ronchi, No Stridor, No Cough, No Labored Respirations, No Retractions, No Use of Accessory Muscles, No Other Abnormal Lung Sounds Heart: Yes Regular, No Murmur Abdomen: Yes Normal Bowel Sounds, No Tenderness, No Peritoneal Signs Skin: No Rash, No Edema Neurologic: Alert and oriented, no deficits. Musculoskeletal: Unremarkable. ED Course Vital Signs 07/20/18 07:46 Temperature 98.2 F Pulse Rate 90 Respiratory 18 Rate Blood Pressure 137/81 O2 Sat by Pulse 99 Oximetry ED Medical Decision Making - Radiology Data Radiology results: report reviewed, image reviewed Fluoro Time In Minutes: ROUTINE CHEST, TWO VIEWS: HISTORY: Productive cough. The trachea, heart, mediastinal contour, lung mai and bony thorax are unremarkable. IMPRESSION: Unremarkable chest x-ray. No change since 02/07/17. Transcribed By: TTR Dictated By: FLACO MCCARTY JR, MD Electronically Authenticated By: FLACO MCCARTY JR, MD Signed Date/Time: 07/20/18 0839 - Medical Decision Making 48-year-old female presents with upper respiratory infection. Fever resolved no fever during the ED stay. CXR negative Discussed with mother symptomatic relief with [id number] medications. Patient is here with her who is seen treated for STDs. She states they haven't had intercouse in a while and has no symptoms but wants a urine test. UA shows no sign of infection states has an appt for STD screen next week Discussed increase fluids and diet intake. Discussed rest much needed. Discussed daily vitamin C for immune booster. Patient's mother verbally states she understands and will comply the following instructions and follow-up Vital signs stable. Patient is in no acute distress Critical care attestation.: If time is entered above; I have spent that time in minutes in the direct care of this critically ill patient, excluding procedure time. ED Disposition Clinical Impression: Upper respiratory infection, Bronchitis Disposition: [id number] TO HOME OR SELFCARE Is pt being admited?: No Does the pt Need Aspirin: No Condition: Stable Instructions: Upper Respiratory Infection (ED), Chronic Bronchitis (ED), Viral Syndrome (ED) Additional Instructions: Make sure to follow up with the primary care physician as discussed. Take all your medications as you've been prescribed. If you have any worsening symptoms or develop new symptoms please return to ED immediately. Prescriptions: ALBUTEROL Inhaler (OR & NICU) [ProAir HFA Inhaler] 2 puff IH QID PRN #1 inhalation PRN Reason: Shortness Of Breath Azithromycin [Zithromax Z-STEPHANY] 250 mg PO QDAY #6 tablet Nystas/Diphen/Xyl Visc/Mylanta [Magic Mouthwash] 15 ml MM Q4H #120 ml prednisoLONE [Prednisolone] 45 mg PO DAILY 5 Days solution Referrals: LILIYA BENTON MD [Primary Care Provider] - 3-5 Days Forms: Work/School Release Form(ED) Time of Disposition: 08:50
[2018-07-20 09:30] LABS: Bilirubin,Urine NEG (Negative); Blood,Urine NEG (Negative); Color,Urine Yellow (Yellow); Mucus,Urine FEW /HPF; Protein,Urine <15 mg/dL mg/dL (Negative); WBC,Urine < 1.0 /HPF (0.0-6.0)
[2018-07-20] MEDS ORDERED: FLAGYL PO ONE (09:35)
[2018-07-20] MEDS ORDERED: ZITHROMAX PO ONE (09:35)
[2018-07-20] MEDS ORDERED: ROCEPHIN IM ONE (09:35)
[2018-07-20] MEDS ORDERED: XYLOCAINE 1% MPF 5 mL INFILTRATI ONE (09:35)
== END 2018-07-20 09:53 | disposition home or self-care (01) ==
LOC: ED 07:42
DX: J40 Bronchitis, not specified as acute or chronic (principal); J06.9 Acute upper respiratory infection, unspecified; E11.9 Type 2 diabetes mellitus without complications; J45.909 Unspecified asthma, uncomplicated; Z98.51 Tubal ligation status
CPT/HCPCS: 71046; 81001; 99283; J7512

== ENCOUNTER 2018-10-10 09:05 | Emergency (ER) | payer OTHER ==
[2018-10-10 09:12] VITALS: BP 123/66
[2018-10-10] MEDS ORDERED: TORADOL IM ONE (10:13)
--- NOTE | 2018-10-10 10:58 | Emergency Department Report ---
ED ENT HPI - General Chief complaint: Sore Throat Stated complaint: SORE THROAT Time Seen by Provider: 10/10/18 09:59 Source: patient Mode of arrival: Ambulatory Limitations: No Limitations - History of Present Illness Initial comments: 48-year-old female with history of diabetes presents to ED with upper respiratory symptoms 1 week. Patient reports sore throat, productive cough, headache. Denies nausea or vomiting. The patient presents here today due to the sore throat and loss of voice. MD complaint: sore throat -: week(s) (1) Location: throat Severity: moderate Quality: sharp Consistency: constant Improves with: none Worsens with: swallowing, eating Associated Symptoms: cough, sore throat. denies: fever - Related Data Home Medications Medication Instructions Recorded Confirmed Last Taken FLUoxetine [Prozac] 20 mg PO QDAY 04/26/13 11/04/14 10/05/14 Lurasidone HCl [Latuda] 20 mg PO HS 11/04/14 11/04/14 10/28/14 metFORMIN [Glucophage] 500 mg PO BID 11/04/14 11/04/14 08/10/14 Previous Rx's Medication Instructions Recorded Last Taken Type Albuterol Sulfate [Ventolin HFA] 2 puff IH Q4H PRN #1 hfa.aer.ad 11/04/14 Unknown Rx metFORMIN [Glucophage] 500 mg PO QAM #30 tablet 11/04/14 Unknown Rx Ibuprofen [Motrin] 600 mg PO Q8H PRN #15 tablet 09/30/16 Unknown Rx methOCARBAMOL [Robaxin TAB] 500 mg PO Q6H PRN #15 tablet 09/30/16 Unknown Rx Acetaminophen/Codeine [Tylenol 1 tab PO Q6H PRN #10 tab 11/11/16 Unknown Rx /Codeine # 3 tab] Naproxen [Naprosyn TAB] 375 mg PO BID PRN #15 tablet 02/07/17 Unknown Rx Prednisone [predniSONE 5 mg (6-Day 5 mg PO .TAPER #1 tab.ds.pk 02/07/17 Unknown Rx Pack, 21 Tabs)] guaiFENesin DM [Robitussin Dm] 10 ml PO Q6HR PRN #1 bottle 02/07/17 Unknown Rx Cyclobenzaprine [Flexeril] 10 mg PO QHS PRN #7 tablet 07/10/17 Unknown Rx Ibuprofen [Motrin] 600 mg PO Q8H PRN #30 tablet 07/10/17 Unknown Rx Ibuprofen [Motrin 800 MG tab] 800 mg PO Q8HR #30 tablet 11/30/17 Unknown Rx cephALEXin [Keflex] 250 mg PO Q6HR #40 capsule 11/30/17 Unknown Rx HYDROcodone/ACETAMINOPHEN 15 ml PO Q6HR PRN #150 solution 06/02/18 Unknown Rx [Hydrocodon-Acetamin 7.5-325/] ALBUTEROL Inhaler (OR & NICU) 2 puff IH QID PRN #1 inhalation 07/20/18 Unknown Rx [ProAir HFA Inhaler] Azithromycin [Zithromax Z-STEPHANY] 250 mg PO QDAY #6 tablet 07/20/18 Unknown Rx Nystas/Diphen/Xyl Visc/Mylanta 15 ml MM Q4H #120 ml 07/20/18 Unknown Rx [Magic Mouthwash] prednisoLONE [Prednisolone] 45 mg PO DAILY 5 Days solution 07/20/18 Unknown Rx Benzonatate [Tessalon Perles] 100 mg PO Q8HR PRN #20 capsule 10/10/18 Unknown Rx Naproxen [Naprosyn] 500 mg PO BID #20 tablet 10/10/18 Unknown Rx Allergies Allergy/AdvReac Type Severity Reaction Status Date / Time No Known Allergies Allergy Verified 06/02/18 12:26 ED Dental HPI - General Chief complaint: Sore Throat Stated complaint: SORE THROAT Time Seen by Provider: 10/10/18 09:59 Source: patient Mode of arrival: Ambulatory Limitations: No Limitations - Related Data Home Medications Medication Instructions Recorded Confirmed Last Taken FLUoxetine [Prozac] 20 mg PO QDAY 04/26/13 11/04/14 10/05/14 Lurasidone HCl [Latuda] 20 mg PO HS 11/04/14 11/04/14 10/28/14 metFORMIN [Glucophage] 500 mg PO BID 11/04/14 11/04/14 08/10/14 Previous Rx's Medication Instructions Recorded Last Taken Type Albuterol Sulfate [Ventolin HFA] 2 puff IH Q4H PRN #1 hfa.aer.ad 11/04/14 Unknown Rx metFORMIN [Glucophage] 500 mg PO QAM #30 tablet 11/04/14 Unknown Rx Ibuprofen [Motrin] 600 mg PO Q8H PRN #15 tablet 09/30/16 Unknown Rx methOCARBAMOL [Robaxin TAB] 500 mg PO Q6H PRN #15 tablet 09/30/16 Unknown Rx Acetaminophen/Codeine [Tylenol 1 tab PO Q6H PRN #10 tab 11/11/16 Unknown Rx /Codeine # 3 tab] Naproxen [Naprosyn TAB] 375 mg PO BID PRN #15 tablet 02/07/17 Unknown Rx Prednisone [predniSONE 5 mg (6-Day 5 mg PO .TAPER #1 tab.ds.pk 02/07/17 Unknown Rx Pack, 21 Tabs)] guaiFENesin DM [Robitussin Dm] 10 ml PO Q6HR PRN #1 bottle 02/07/17 Unknown Rx Cyclobenzaprine [Flexeril] 10 mg PO QHS PRN #7 tablet 07/10/17 Unknown Rx Ibuprofen [Motrin] 600 mg PO Q8H PRN #30 tablet 07/10/17 Unknown Rx Ibuprofen [Motrin 800 MG tab] 800 mg PO Q8HR #30 tablet 11/30/17 Unknown Rx cephALEXin [Keflex] 250 mg PO Q6HR #40 capsule 11/30/17 Unknown Rx HYDROcodone/ACETAMINOPHEN 15 ml PO Q6HR PRN #150 solution 06/02/18 Unknown Rx [Hydrocodon-Acetamin 7.5-325/15] ALBUTEROL Inhaler (OR & NICU) 2 puff IH QID PRN #1 inhalation 07/20/18 Unknown Rx [ProAir HFA Inhaler] Azithromycin [Zithromax Z-STEPHANY] 250 mg PO QDAY #6 tablet 07/20/18 Unknown Rx Nystas/Diphen/Xyl Visc/Mylanta 15 ml MM Q4H #120 ml 07/20/18 Unknown Rx [Magic Mouthwash] prednisoLONE [Prednisolone] 45 mg PO DAILY 5 Days solution 07/20/18 Unknown Rx Benzonatate [Tessalon Perles] 100 mg PO Q8HR PRN #20 capsule 10/10/18 Unknown Rx Naproxen [Naprosyn] 500 mg PO BID #20 tablet 10/10/18 Unknown Rx Allergies Allergy/AdvReac Type Severity Reaction Status Date / Time No Known Allergies Allergy Verified 06/02/18 12:26 ED Review of Systems ROS: Stated complaint: SORE THROAT Other details as noted in HPI Comment: All other systems reviewed and negative Constitutional: denies: chills, fever ENT: throat pain Respiratory: cough Gastrointestinal: denies: nausea, vomiting Neurological: headache ED Past Medical Hx - Past Medical History Previous Medical History?: Yes Hx Diabetes: Yes Hx Psychiatric Treatment: Yes (BIPOLAR / SCHIZOPHRENIA) Hx Asthma: Yes Additional medical history: back problems - Surgical History Past Surgical History?: Yes Additional Surgical History: Tubal Ligation, x 1 - Social History Smoking Status: Never Smoker Substance Use Type: None - Medications Home Medications: Home Medications Medication Instructions Recorded Confirmed Last Taken Type FLUoxetine [Prozac] 20 mg PO QDAY 04/26/13 11/04/14 10/05/14 History Albuterol Sulfate [Ventolin HFA] 2 puff IH Q4H PRN #1 hfa.aer.ad 11/04/14 Unknown Rx Lurasidone HCl [Latuda] 20 mg PO HS 11/04/14 11/04/14 10/28/14 History metFORMIN [Glucophage] 500 mg PO BID 11/04/14 11/04/14 08/10/14 History metFORMIN [Glucophage] 500 mg PO QAM #30 tablet 11/04/14 Unknown Rx Ibuprofen [Motrin] 600 mg PO Q8H PRN #15 tablet 09/30/16 Unknown Rx methOCARBAMOL [Robaxin TAB] 500 mg PO Q6H PRN #15 tablet 09/30/16 Unknown Rx Acetaminophen/Codeine [Tylenol 1 tab PO Q6H PRN #10 tab 11/11/16 Unknown Rx /Codeine # 3 tab] Naproxen [Naprosyn TAB] 375 mg PO BID PRN #15 tablet 02/07/17 Unknown Rx Prednisone [predniSONE 5 mg (6-Day 5 mg PO .TAPER #1 tab.ds.pk 02/07/17 Unknown Rx Pack, 21 Tabs)] guaiFENesin DM [Robitussin Dm] 10 ml PO Q6HR PRN #1 bottle 02/07/17 Unknown Rx Cyclobenzaprine [Flexeril] 10 mg PO QHS PRN #7 tablet 07/10/17 Unknown Rx Ibuprofen [Motrin] 600 mg PO Q8H PRN #30 tablet 07/10/17 Unknown Rx Ibuprofen [Motrin 800 MG tab] 800 mg PO Q8HR #30 tablet 11/30/17 Unknown Rx cephALEXin [Keflex] 250 mg PO Q6HR #40 capsule 11/30/17 Unknown Rx HYDROcodone/ACETAMINOPHEN 15 ml PO Q6HR PRN #150 solution 06/02/18 Unknown Rx [Hydrocodon-Acetamin 7.5-325/15] ALBUTEROL Inhaler (OR & NICU) 2 puff IH QID PRN #1 inhalation 07/20/18 Unknown Rx [ProAir HFA Inhaler] Azithromycin [Zithromax Z-STEPHANY] 250 mg PO QDAY #6 tablet 07/20/18 Unknown Rx Nystas/Diphen/Xyl Visc/Mylanta 15 ml MM Q4H #120 ml 07/20/18 Unknown Rx [Magic Mouthwash] prednisoLONE [Prednisolone] 45 mg PO DAILY 5 Days solution 07/20/18 Unknown Rx Benzonatate [Tessalon Perles] 100 mg PO Q8HR PRN #20 capsule 10/10/18 Unknown Rx Naproxen [Naprosyn] 500 mg PO BID #20 tablet 10/10/18 Unknown Rx ED Physical Exam - General Limitations: No Limitations General appearance: alert, in no apparent distress - Head Head exam: Present: atraumatic, normocephalic - Eye Eye exam: Present: normal appearance - ENT ENT exam: Present: normal orophraynx, mucous membranes moist, other (voice is hoarse; no tonsillar swelling or exudates present) - Neck Neck exam: Present: normal inspection. Absent: lymphadenopathy - Respiratory Respiratory exam: Present: normal lung sounds bilaterally. Absent: respiratory distress - Cardiovascular Cardiovascular Exam: Present: regular rate, normal rhythm - GI/Abdominal GI/Abdominal exam: Absent: distended - Extremities Exam Extremities exam: Present: normal inspection - Neurological Exam Neurological exam: Present: alert, oriented X3 - Psychiatric Psychiatric exam: Present: normal affect, normal mood - Skin Skin exam: Present: warm, dry, intact, normal color ED Course Vital Signs 10/10/18 10/10/18 09:10 10:30 Temperature 98 F Pulse Rate 93 H Respiratory 16 15 Rate Blood Pressure 123/66 O2 Sat by Pulse 99 Oximetry ED Medical Decision Making - Medical Decision Making - flu and strep negative - vitals normal, no distress, appears nontoxic - likely viral URI - outpt f/u given - return precautions given - Differential Diagnosis strep pharyngitis, laryngitis, influenza Critical care attestation.: If time is entered above; I have spent that time in minutes in the direct care of this critically ill patient, excluding procedure time. ED Disposition Clinical Impression: Pharyngitis, Upper respiratory infection Disposition: TO HOME OR SELFCARE Is pt being admited?: No Condition: Stable Instructions: Pharyngitis (ED), Upper Respiratory Infection (ED) Prescriptions: Naproxen [Naprosyn] 500 mg PO BID #20 tablet Benzonatate [Tessalon Perles] 100 mg PO Q8HR PRN #20 capsule PRN Reason: Cough Referrals: [facility] MD KIRSTY [Primary Care Provider] - 3-5 Days ELAINA ALVARADO MD [Staff Physician] - 3-5 Days Time of Disposition: 10:58
== END 2018-10-10 11:14 | disposition home or self-care (01) ==
LOC: ED 09:05
DX: J02.9 Acute pharyngitis, unspecified (principal); J06.9 Acute upper respiratory infection, unspecified; E11.9 Type 2 diabetes mellitus without complications; J45.909 Unspecified asthma, uncomplicated
CPT/HCPCS: 87116; 87400; 87430; 96372; 99283; J1885

== ENCOUNTER 2019-02-05 18:50 | Emergency (ER) | payer SELFPAY ==
[2019-02-05 19:39] VITALS: BP 115/63
--- NOTE | 2019-02-05 19:47 | Event Note ---
ED Screening Note Date of service: 02/05/19 Time: 19:47 ED Screening Note: 49 y female presents with neck muscle spasms and right arm pain This initial assessment/diagnostic orders/clinical plan/treatment(s) is/are subject to change based on patients health status, clinical progression and re- assessment by fellow clinical providers in the ED. Further treatment and workup at subsequent clinical providers discretion. Patient/guardian urged not to elope from the ED as their condition may be serious if not clinically assessed and managed. Initial orders include:
[2019-02-05] MEDS ORDERED: PERCOCET 5/325 PO STA (21:46)
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
== END 2019-02-05 22:55 | disposition home or self-care (01) ==
LOC: ED 18:50
DX: M62.838 Other muscle spasm (principal); F41.9 Anxiety disorder, unspecified; M25.531 Pain in right wrist; E11.9 Type 2 diabetes mellitus without complications; F20.9 Schizophrenia, unspecified; F31.9 Bipolar disorder, unspecified; J45.909 Unspecified asthma, uncomplicated; Z98.51 Tubal ligation status; Z79.899 Other long term (current) drug therapy
CPT/HCPCS: 99282

== ENCOUNTER 2020-08-18 13:13 | Emergency (ER) | payer SELFPAY ==
[2020-08-18 14:25] VITALS: BP 125/75
--- NOTE | 2020-08-18 14:53 | Emergency Department Report ---
Blank Doc - Documentation Documentation: 50-year-old female that presents with generalized abdominal pain with distension with n/v and vaginal bleeding. Stated had a positive test in [facility]. 1- This initial assessment/diagnostic orders/clinical plan/ treatment(s) is/are subject to change based on pt's health status, clinical progression and re- assessment by fellow clinical providers in the ED. Further treatment and workup at subsequent clinical provers discretion. Patient/guardians urged not to elope from ED as their condition may be serious if not clinically assessed and managed. 2-labs 3-UA
[2020-08-18 15:35] LABS: Basophils # (Auto) 0.1 K/mm3 (0.0-0.1); Basophils % (Auto) 0.7 % (0.0-1.8); Eosinophils # (Auto) 0.2 K/mm3 (0.0-0.4); Eosinophils % (Auto) 2.9 % (0.0-4.3); Hematocrit 41.8 % (30.3-42.9); Hemoglobin 13.6 gm/dl (10.1-14.3); Lymphocytes # (Auto) 2.3 K/mm3 (1.2-5.4); Lymphocytes % (Auto) 32.8 % (13.4-35.0); Mean Corpuscular HGB Conc 33 % (30-34); Mean Corpuscular Volume 97 fl (79-97); Monocytes # (Auto) 0.4 K/mm3 (0.0-0.8); Monocytes % (Auto) 5.7 % (0.0-7.3); Platelet Count 317 K/mm3 (140-440); Red Blood Count 4.33 M/mm3 (3.65-5.03); Red Cell Distribution Width 14.5 % (13.2-15.2)
[2020-08-18 15:50] LABS: Alanine Aminotransferase 11 units/L (7-56); Albumin 4.2 g/dL (3.9-5); Blood Urea Nitrogen 10 mg/dL (7-17); Calcium 8.7 mg/dL (8.4-10.2); Hemolysis Index 6
[2020-08-18 15:51] LABS: BUN/Creatinine Ratio 17
--- NOTE | 2020-08-18 19:16 | Emergency Department Report ---
ED Female HPI - General Chief complaint: Vaginal Bleeding Stated complaint: VAGINAL BLEEDING Time Seen by Provider: 08/18/20 14:17 Source: patient Mode of arrival: Ambulatory Limitations: No Limitations - History of Present Illness Initial comments: Patient is a 50-year-old female presents emergency room with complaints of lower abdominal cramping and vaginal bleeding that began yesterday. She states that she passed one moderate sized clot today. She states that she went to [facility] on July 05 and was advised that her hCG blood test was slightly positive. She states that she never followed up with anyone. She states on July 26 she began to have lower abdominal cramping, lower back pain, bleeding. She states that she is not sure if she had a miscarriage. She did not follow-up with [facility]. She denies any fever, nausea, vomiting, diarrhea, dysuria, abnormal vaginal discharge. No past medical history. No allergies to medications. She states that she typically has a normal cycle monthly. She states her mother has a history of ovarian cancer. - Related Data Home Medications Medication Instructions Recorded Confirmed Last Taken FLUoxetine [Prozac] 20 mg PO QDAY 04/26/13 11/04/14 10/05/14 Lurasidone HCl [Latuda] 20 mg PO HS 11/04/14 11/04/14 10/28/14 metFORMIN [Glucophage] 500 mg PO BID 11/04/14 11/04/14 08/10/14 Previous Rx's Medication Instructions Recorded Last Taken Type Albuterol Sulfate [Ventolin HFA] 2 puff IH Q4H PRN #1 hfa.aer.ad 11/04/14 Unknown Rx metFORMIN [Glucophage] 500 mg PO QAM #30 tablet 11/04/14 Unknown Rx Ibuprofen [Motrin] 600 mg PO Q8H PRN #15 tablet 09/30/16 Unknown Rx methOCARBAMOL [Robaxin TAB] 500 mg PO Q6H PRN #15 tablet 09/30/16 Unknown Rx Acetaminophen/Codeine [Tylenol 1 tab PO Q6H PRN #10 tab 11/11/16 Unknown Rx /Codeine # 3 tab] Naproxen [Naprosyn TAB] 375 mg PO BID PRN #15 tablet 02/07/17 Unknown Rx Prednisone [predniSONE 5 mg (6-Day 5 mg PO .TAPER #1 tab.ds.pk 02/07/17 Unknown Rx Pack, 21 Tabs)] guaiFENesin DM [Robitussin Dm] 10 ml PO Q6HR PRN #1 bottle 02/07/17 Unknown Rx Cyclobenzaprine [Flexeril] 10 mg PO QHS PRN #7 tablet 07/10/17 Unknown Rx Ibuprofen [Motrin] 600 mg PO Q8H PRN #30 tablet 07/10/17 Unknown Rx Ibuprofen [Motrin 800 MG tab] 800 mg PO Q8HR #30 tablet 11/30/17 Unknown Rx cephALEXin [Keflex] 250 mg PO Q6HR #40 capsule 11/30/17 Unknown Rx HYDROcodone/ACETAMINOPHEN 15 ml PO Q6HR PRN #150 solution 06/02/18 Unknown Rx [Hydrocodon-Acetamin 7.5-325/15] Albuterol Mdi (or & Nicu Only) 2 puff IH QID PRN #1 inhalation 07/20/18 Unknown Rx [ProAir HFA Inhaler] Azithromycin [Zithromax Z-STEPHANY] 250 mg PO QDAY #6 tablet 07/20/18 Unknown Rx Nystas/Diphen/Xyl Visc/Mylanta 15 ml MM Q4H #120 ml 07/20/18 Unknown Rx [Magic Mouthwash] prednisoLONE [Prednisolone] 45 mg PO DAILY 5 Days solution 07/20/18 Unknown Rx Benzonatate [Tessalon Perles] 100 mg PO Q8HR PRN #20 capsule 10/10/18 Unknown Rx Naproxen [Naprosyn] 500 mg PO BID #20 tablet 10/10/18 Unknown Rx Ketorolac [Toradol] 10 mg PO Q8H PRN #20 tablet 02/05/19 Unknown Rx methOCARBAMOL [Robaxin TAB] 500 mg PO Q6H PRN #20 tablet 02/05/19 Unknown Rx Naproxen [EC-Naprosyn] 500 mg PO BID PRN #20 tablet 08/18/20 Unknown Rx Allergies Allergy/AdvReac Type Severity Reaction Status Date / Time No Known Allergies Allergy Verified 06/02/18 12:26 ED Review of Systems ROS: Stated complaint: VAGINAL BLEEDING Other details as noted in HPI Comment: All other systems reviewed and negative ED Past Medical Hx - Past Medical History Previous Medical History?: Yes Hx Diabetes: Yes Hx Psychiatric Treatment: Yes (BIPOLAR / SCHIZOPHRENIA) Hx Asthma: Yes Additional medical history: back problems - Surgical History Past Surgical History?: Yes Additional Surgical History: Tubal Ligation, x 1 - Social History Smoking Status: Never Smoker Substance Use Type: None - Medications Home Medications: Home Medications Medication Instructions Recorded Confirmed Last Taken Type FLUoxetine [Prozac] 20 mg PO QDAY 04/26/13 11/04/14 10/05/14 History Albuterol Sulfate [Ventolin HFA] 2 puff IH Q4H PRN #1 hfa.aer.ad 11/04/14 Unknown Rx Lurasidone HCl [Latuda] 20 mg PO HS 11/04/14 11/04/14 10/28/14 History metFORMIN [Glucophage] 500 mg PO BID 11/04/14 11/04/14 08/10/14 History metFORMIN [Glucophage] 500 mg PO QAM #30 tablet 11/04/14 Unknown Rx Ibuprofen [Motrin] 600 mg PO Q8H PRN #15 tablet 09/30/16 Unknown Rx methOCARBAMOL [Robaxin TAB] 500 mg PO Q6H PRN #15 tablet 09/30/16 Unknown Rx Acetaminophen/Codeine [Tylenol 1 tab PO Q6H PRN #10 tab 11/11/16 Unknown Rx /Codeine # 3 tab] Naproxen [Naprosyn TAB] 375 mg PO BID PRN #15 tablet 02/07/17 Unknown Rx Prednisone [predniSONE 5 mg (6-Day 5 mg PO .TAPER #1 tab.ds.pk 02/07/17 Unknown Rx Pack, 21 Tabs)] guaiFENesin DM [Robitussin Dm] 10 ml PO Q6HR PRN #1 bottle 02/07/17 Unknown Rx Cyclobenzaprine [Flexeril] 10 mg PO QHS PRN #7 tablet 07/10/17 Unknown Rx Ibuprofen [Motrin] 600 mg PO Q8H PRN #30 tablet 07/10/17 Unknown Rx Ibuprofen [Motrin 800 MG tab] 800 mg PO Q8HR #30 tablet 11/30/17 Unknown Rx cephALEXin [Keflex] 250 mg PO Q6HR #40 capsule 11/30/17 Unknown Rx HYDROcodone/ACETAMINOPHEN 15 ml PO Q6HR PRN #150 solution 06/02/18 Unknown Rx [Hydrocodon-Acetamin 7.5-325/15] Albuterol Mdi (or & Nicu Only) 2 puff IH QID PRN #1 inhalation 07/20/18 Unknown Rx [ProAir HFA Inhaler] Azithromycin [Zithromax Z-STEPHANY] 250 mg PO QDAY #6 tablet 07/20/18 Unknown Rx Nystas/Diphen/Xyl Visc/Mylanta 15 ml MM Q4H #120 ml 07/20/18 Unknown Rx [Magic Mouthwash] prednisoLONE [Prednisolone] 45 mg PO DAILY 5 Days solution 07/20/18 Unknown Rx Benzonatate [Tessalon Perles] 100 mg PO Q8HR PRN #20 capsule 10/10/18 Unknown Rx Naproxen [Naprosyn] 500 mg PO BID #20 tablet 10/10/18 Unknown Rx Ketorolac [Toradol] 10 mg PO Q8H PRN #20 tablet 02/05/19 Unknown Rx methOCARBAMOL [Robaxin TAB] 500 mg PO Q6H PRN #20 tablet 02/05/19 Unknown Rx Naproxen [EC-Naprosyn] 500 mg PO BID PRN #20 tablet. 08/18/20 Unknown Rx ED Physical Exam - General Limitations: No Limitations General appearance: alert, in no apparent distress - Head Head exam: Present: atraumatic, normocephalic - Eye Eye exam: Present: normal appearance - ENT ENT exam: Present: mucous membranes moist - Respiratory Respiratory exam: Present: normal lung sounds bilaterally. Absent: respiratory distress, wheezes, rales, rhonchi, stridor, chest wall tenderness, accessory mu scle use, decreased breath sounds, prolonged expiratory - Cardiovascular Cardiovascular Exam: Present: regular rate, normal rhythm, normal heart sounds. Absent: systolic murmur, diastolic murmur, rubs, gallop - GI/Abdominal GI/Abdominal exam: Present: soft, normal bowel sounds. Absent: distended, tenderness, guarding, rebound, rigid - Neurological Exam Neurological exam: Present: alert, oriented X3 - Psychiatric Psychiatric exam: Present: normal affect, normal mood - Skin Skin exam: Present: warm, dry, intact ED Course Vital Signs 08/18/20 14:21 Temperature 97.8 F Pulse Rate 65 Respiratory 18 Rate Blood Pressure 125/75 O2 Sat by Pulse 100 Oximetry ED Medical Decision Making - Lab Data Result diagrams: 08/18/20 15:19 08/18/20 15:19 Lab Results 0308/18/20 08/18/20 Range/Units 15:19 15:19 15:19 WBC 7.1 (4.5-11.0) K/mm3 RBC 4.33 (3.65-5.03) M/mm3 Hgb 13.6 (10.1-14.3) gm/dl Hct 41.8 (30.3-42.9) % MCV 97 (79-97) fl MCH 31 (28-32) pg MCHC 33 (30-34) % RDW 14.5 (13.2-15.2) % Plt Count 317 (140-440) K/mm3 Lymph % (Auto) 32.8 (13.4-35.0) % [facility] [place] [facility] % (Auto) 5.7 (0.0-7.3) % Eos % (Auto) 2.9 (0.0-4.3) % Baso % (Auto) 0.7 (0.0-1.8) % Lymph # (Auto) 2.3 (1.2-5.4) K/mm3 [facility] [place] [facility] # (Auto) 0.4 (0.0-0.8) K/mm3 Eos # (Auto) 0.2 (0.0-0.4) K/mm3 Baso # (Auto) 0.1 (0.0-0.1) K/mm3 Seg Neutrophils % 57.9 (40.0-70.0) % Seg Neutrophils # 4.1 (1.8-7.7) K/mm3 Sodium 141 (137-145) mmol/L Potassium 3.8 (3.6-5.0) mmol/L Chloride 105.5 (98-107) mmol/L Carbon Dioxide 29 (22-30) mmol/L Anion Gap 10 mmol/L BUN 10 (7-17) mg/dL Creatinine 0.6 (0.6-1.2) mg/dL Estimated GFR > 60 ml/min BUN/Creatinine Ratio 17 % Glucose 114 H (65-100) mg/dL Calcium 8.7 (8.4-10.2) mg/dL Total Bilirubin 0.30 (0.1-1.2) mg/dL AST 17 (5-40) units/L ALT 11 (7-56) units/L Alkaline Phosphatase 60 (35-129) units/L Total Protein 7.3 (6.3-8.2) g/dL Albumin 4.2 (3.9-5) g/dL Albumin/Globulin Ratio 1.4 % Lipase 30 (13-60) units/L HCG, Quant < 2 (0-4) mIU/mL Blood Type 08/18/20 Range/Units 15:20 WBC (4.5-11.0) K/mm3 RBC (3.65-5.03) M/mm3 Hgb (10.1-14.3) gm/dl Hct (30.3-42.9) % MCV (79-97) fl MCH (28-32) pg MCHC (30-34) % RDW (13.2-15.2) % Plt Count (140-440) K/mm3 Lymph % (Auto) (13.4-35.0) % [facility] [place] [facility] % (Auto) (0.0-7.3) % Eos % (Auto) (0.0-4.3) % Baso % (Auto) (0.0-1.8) % Lymph # (Auto) (1.2-5.4) K/mm3 [facility] # (Auto) (0.0-0.8) K/mm3 Eos # (Auto) (0.0-0.4) K/mm3 Baso # (Auto) (0.0-0.1) K/mm3 Seg Neutrophils % (40.0-70.0) % Seg Neutrophils # (1.8-7.7) K/mm3 Sodium (137-145) mmol/L Potassium (3.6-5.0) mmol/L Chloride (98-107) mmol/L Carbon Dioxide (22-30) mmol/L Anion Gap mmol/L BUN (7-17) mg/dL Creatinine (0.6-1.2) mg/dL Estimated GFR ml/min BUN/Creatinine Ratio % Glucose (65-100) mg/dL Calcium (8.4-10.2) mg/dL Total Bilirubin (0.1-1.2) mg/dL AST (5-40) units/L ALT (7-56) units/L Alkaline Phosphatase (35-129) units/L Total Protein (6.3-8.2) g/dL Albumin (3.9-5) g/dL Albumin/Globulin Ratio % Lipase (13-60) units/L HCG, Quant (0-4) mIU/mL Blood Type B POSITIVE - Radiology Data Radiology results: report reviewed Ordering Physician: EVER BISWAS Date of Service: 08/18/20 Procedure(s): US transvaginal Accession Number(s): [id number] cc: EVER BISWAS Pelvic Ultrasound HISTORY: pelvic pain, vaginal bleeding. TECHNIQUE: Grayscale and color imaging performed. COMPARISON: No recent comparison ultrasound although there is an ultrasound from 06/28/2010. FINDINGS: Transabdominal and endovaginal imaging was performed. Uterus measures 8.2 x 4.7 x 5.0 cm with at least 3 hypoechoic masses within the uterine body likely representing fibroids the largest of which measures 3 cm. Small nabothian cysts are present. Endometrial echo complex measures 5 mm. Both ovaries are normal in size with a small follicle on the right. No significant pelvic free fluid. IMPRESSION: Multiple uterine fibroids. Otherwise unremarkable exam. Signer Name: Walt Fernandez MD Signed: 08/18/2020 8:54 PM Workstation Name: [id number] Transcribed By: ALBERT Dictated By: Walt Fernandez MD Electronically Authenticated By: Walt Fernandez MD Signed Date/Time: 08/18/202053 DD/ 52 TD/TT: Print - Medical Decision Making Patient is a 50-year-old female presents emergency room with complaints of lower abdominal cramping and vaginal bleeding that began yesterday. She states that she passed one moderate sized clot today. She states that she went to [facility] on July 05 and was advised that her hCG blood test was slightly positive. She states that she never followed up with anyone. She states on July 26 she began to have lower abdominal cramping, lower back pain, bleeding. She states that she is not sure if she had a miscarriage. She did not follow-up with [facility]. She denies any fever, nausea, vomiting, diarrhea, dysuria, abnormal vaginal discharge. No past medical history. No allergies to medications. She states that she typically has a normal cycle monthly. She states her mother has a history of ovarian cancer. Vitals are normal. No abdominal tenderness on exam, no guarding, no rebound, no rigidity, normal bowel sounds, no peritoneal signs. Labs are normal. hCG quant is less than 2. Pelvic ultrasound: IMPRESSION: Multiple uterine fibroids. Otherwise unremarkable exam. Discussed all results with patient discussed the importance of [facility] follow-up. Patient given prescription for naproxen. Advised patient Please take medication as prescribed as needed. Increase your water intake. Follow-up with [facility]. it is very important that you follow-up. Return to emergency room for any worsening symptoms. Critical care attestation.: If time is entered above; I have spent that time in minutes in the direct care of this critically ill patient, excluding procedure time. ED Disposition Clinical Impression: Abdominal cramping, Vaginal bleeding Uterine fibroid Qualifiers: Uterine leiomyoma location: unspecified location Qualified Code(s): D25.9 - Leiomyoma of uterus, unspecified Disposition: TO HOME OR SELFCARE Is pt being admited?: No Does the pt Need Aspirin: No Condition: Stable Instructions: Uterine Fibroids, [id number] Additional Instructions: Please take medication as prescribed as needed. Increase your water intake. Follow-up with [facility]. it is very important that you follow-up. Return to emergency room for any worsening symptoms. Prescriptions: Naproxen [EC-Naprosyn] 500 mg PO BID PRN #20 tablet.dr RUIZ Reason: pain Referrals: PRIMARY CARE, [Primary Care Provider] - 2-3 Days [facility] [Provider Group] - 2-3 Days [facility] [Provider Group] - 2-3 Days [facility] [Provider Group] - 2-3 Days Time of Disposition: 21:17 Print Language: TAMAZIGHT
--- NOTE | 2020-08-18 20:59 | Ultrasound Report ---
Pelvic Ultrasound HISTORY: pelvic pain, vaginal bleeding. TECHNIQUE: Grayscale and color imaging performed. COMPARISON: No recent comparison ultrasound although there is an ultrasound from 06/28/2010. FINDINGS: Transabdominal and endovaginal imaging was performed. Uterus measures 8.2 x 4.7 x 5.0 cm with at least 3 hypoechoic masses within the uterine body likely r epresenting fibroids the largest of which measures 3 cm. Small nabothian cysts are present. Endometri al echo complex measures 5 mm. Both ovaries are normal in size with a small follicle on the right. No significant pelvic free fluid. IMPRESSION: Multiple uterine fibroids. Otherwise unremarkable exam. Signer Name: Walt Fernandez MD Signed: 08/18/2020 8:54 PM Workstation Name: [id number]
== END 2020-08-18 21:45 | disposition home or self-care (01) ==
LOC: ED 13:13
DX: N93.9 Abnormal uterine and vaginal bleeding, unspecified (principal); D25.9 Leiomyoma of uterus, unspecified; R10.9 Unspecified abdominal pain; F25.0 Schizoaffective disorder, bipolar type; E11.9 Type 2 diabetes mellitus without complications; J45.909 Unspecified asthma, uncomplicated; Z98.890 Other specified postprocedural states; Z98.51 Tubal ligation status; Z79.899 Other long term (current) drug therapy
CPT/HCPCS: 36415; 76830; 76856; 80053; 83690; 84702; 85025; 86900; 86901

== ENCOUNTER 2020-09-14 18:06 | Emergency (ER) | payer OTHER ==
[2020-09-14 18:13] VITALS: BP 107/59
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
== END 2020-09-14 21:00 | disposition home or self-care (01) ==
LOC: ED 18:06
DX: S16.1XXA Strain of muscle, fascia and tendon at neck level, initial encounter (principal); S29.012A Strain of muscle and tendon of back wall of thorax, initial encounter; S00.83XA Contusion of other part of head, initial encounter; S20.219A Contusion of unspecified front wall of thorax, initial encounter; F32.9 Major depressive disorder, single episode, unspecified; E11.9 Type 2 diabetes mellitus without complications; F25.0 Schizoaffective disorder, bipolar type; J45.909 Unspecified asthma, uncomplicated; Z98.890 Other specified postprocedural states; Z98.51 Tubal ligation status; Z79.899 Other long term (current) drug therapy; V49.49XA Driver injured in collision with other motor vehicles in traffic accident, initial encounter; Y92.410 Unspecified street and highway as the place of occurrence of the external cause; Y93.89 Activity, other specified; Y99.8 Other external cause status
CPT/HCPCS: 70450; 70486; 71046; 72125; 72127

== ENCOUNTER 2021-01-27 17:09 | Emergency (ER) | payer BC ==
[2021-01-27 18:25] VITALS: BP 116/50
--- NOTE | 2021-01-27 20:05 | Emergency Department Report ---
- General Chief complaint: Skin/Abscess/Foreign Body Stated complaint: BOIL ON BACK Time Seen by Provider: 01/27/21 19:56 Source: patient Mode of arrival: Ambulatory Limitations: No Limitations - History of Present Illness Initial comments: Patient is a 50-year-old female presents emergency room with complaints of a lump to her back which she states has been there for several years. She states in the last couple of days it has increased in size and become painful. She denies any drainage, fever, vomiting, diarrhea, chills. Has medical history of bipolar schizophrenia. No allergies to medications. - Related Data Home Medications Medication Instructions Recorded Confirmed Last Taken FLUoxetine [Prozac] 20 mg PO QDAY 04/26/13 11/04/14 10/05/14 Lurasidone HCl [Latuda] 20 mg PO HS 11/04/14 11/04/14 10/28/14 metFORMIN [Glucophage] 500 mg PO BID 11/04/14 11/04/14 08/10/14 Previous Rx's Medication Instructions Recorded Last Taken Type metFORMIN [Glucophage] 500 mg PO QAM #30 tablet 11/04/14 Unknown Rx Ibuprofen [Motrin] 800 mg PO Q8HR PRN #30 tablet 09/14/20 Unknown Rx Metaxalone [Skelaxin] 800 mg PO TID PRN #30 tablet 09/14/20 Unknown Rx Sulfamethoxazole/Trimethoprim 1 each PO BID 7 Days #14 tablet 01/27/21 Unknown Rx [Bactrim DS TAB] Allergies Allergy/AdvReac Type Severity Reaction Status Date / Time No Known Allergies Allergy Verified 09/14/20 18:07 Abscess Boil HPI - HPI Chief Complaint: Skin/Abscess/Foreign Body Stated Complaint: BOIL ON BACK Time Seen by Provider: 01/27/21 19:56 Home Medications: Home Medications Medication Instructions Recorded Confirmed Last Taken FLUoxetine [Prozac] 20 mg PO QDAY 04/26/13 11/04/14 10/05/14 Lurasidone HCl [Latuda] 20 mg PO HS 11/04/14 11/04/14 10/28/14 metFORMIN [Glucophage] 500 mg PO BID 11/04/14 11/04/14 08/10/14 Previous Rx's Medication Instructions Recorded Last Taken Type metFORMIN [Glucophage] 500 mg PO QAM #30 tablet 11/04/14 Unknown Rx Ibuprofen [Motrin] 800 mg PO Q8HR PRN #30 tablet 09/14/20 Unknown Rx Metaxalone [Skelaxin] 800 mg PO TID PRN #30 tablet 09/14/20 Unknown Rx Sulfamethoxazole/Trimethoprim 1 each PO BID 7 Days #14 tablet 01/27/21 Unknown Rx [Bactrim DS TAB] Allergies/Adverse Reactions: Allergies Allergy/AdvReac Type Severity Reaction Status Date / Time No Known Allergies Allergy Verified 09/14/20 18:07 ED Review of Systems ROS: Stated complaint: BOIL ON BACK Other details as noted in HPI Comment: All other systems reviewed and negative ED Past Medical Hx - Past Medical History Hx Diabetes: Yes Hx Psychiatric Treatment: Yes (BIPOLAR / SCHIZOPHRENIA) Hx Asthma: Yes Additional medical history: back problems - Surgical History Additional Surgical History: Tubal Ligation, x 1 - Social History Smoking Status: Never Smoker - Medications Home Medications: Home Medications Medication Instructions Recorded Confirmed Last Taken Type FLUoxetine [Prozac] 20 mg PO QDAY 04/26/13 11/04/14 10/05/14 History Lurasidone HCl [Latuda] 20 mg PO HS 11/04/14 11/04/14 10/28/14 History metFORMIN [Glucophage] 500 mg PO BID 11/04/14 11/04/14 08/10/14 History metFORMIN [Glucophage] 500 mg PO QAM #30 tablet 11/04/14 Unknown Rx Ibuprofen [Motrin] 800 mg PO Q8HR PRN #30 tablet 09/14/20 Unknown Rx Metaxalone [Skelaxin] 800 mg PO TID PRN #30 tablet 09/14/20 Unknown Rx Sulfamethoxazole/Trimethoprim 1 each PO BID 7 Days #14 tablet 01/27/21 Unknown Rx [Bactrim DS TAB] ED Physical Exam - General Limitations: No Limitations General appearance: alert, in no apparent distress - Head Head exam: Present: atraumatic, normocephalic - Eye Eye exam: Present: normal appearance - ENT ENT exam: Present: mucous membranes moist - Respiratory Respiratory exam: Absent: respiratory distress, accessory muscle use - Neurological Exam Neurological exam: Present: alert, oriented X3 - Psychiatric Psychiatric exam: Present: normal affect, normal mood - Skin Skin exam: Present: warm, dry, other (there is a 2 cm area of induration present to the left middle back with firm nodule, no drainage, no fluctuance, no significant surrounding cellulitis) ED Course Vital Signs 01/27/21 18:23 Temperature 98.0 F Pulse Rate 55 L Respiratory 16 Rate Blood Pressure 116/50 [Right] O2 Sat by Pulse 100 Oximetry ED Medical Decision Making - Medical Decision Making Patient is a 50-year-old female presents emergency room with complaints of a lump to her back which she states has been there for several years. She states in the last couple of days it has increased in size and become painful. She denies any drainage, fever, vomiting, diarrhea, chills. Has medical history of bipolar schizophrenia. No allergies to medications. Vitals are stable. On exam:there is a 2 cm area of induration present to the left middle back with firm nodule, no drainage, no fluctuance, no significant surrounding cellulitis. Examination appears consistent with likely a cyst that has now become infected causing cellulitis. There is no drainable abscess at this time, the area is firm and very small. Patient will be given prescription for medication. Discussed the importance of outpatient dermatology or general surgery follow-up. Advised patient Please take medication as prescribed. May take Tylenol or ibuprofen as needed for any discomfort. Please do warm compresses 3 times a day. Follow-up with a general surgeon or senior devops engineer. Return to emergency room for any new or worsening symptoms. Critical care attestation.: If time is entered above; I have spent that time in minutes in the direct care of this critically ill patient, excluding procedure time. ED Disposition Clinical Impression: Cyst Cellulitis Qualifiers: Site of cellulitis: trunk Site of cellulitis of trunk: back Qualified Code(s): L03.312 - Cellulitis of back [any part except buttock] Disposition: 01 HOME / SELF CARE / HOMELESS Is pt being admited?: No Does the pt Need Aspirin: No Condition: Stable Instructions: Cellulitis, Adult Additional Instructions: Please take medication as prescribed. May take Tylenol or ibuprofen as needed for any discomfort. Please do warm compresses 3 times a day. Follow-up with a general surgeon or senior devops engineer. Return to emergency room for any new or worsening symptoms. dermatologists: [facility] Address: [address] [place] [id number] Susan Hanson MD Address: [address] [place] [id number] [address] Jhonny King Address: [address] [place] [address] [address], [place] [address] Prescriptions: Sulfamethoxazole/Trimethoprim [Bactrim DS TAB] 1 each PO BID 7 Days #14 tablet Referrals: ASHLI BAUER MD [Staff Physician] - 2-3 Days Time of Disposition: 20:03 Print Language: BURUNDIAN
== END 2021-01-27 20:10 | disposition home or self-care (01) ==
LOC: ED 17:09
DX: L72.0 Epidermal cyst (principal); L03.312 Cellulitis of back [any part except buttock and flank]; E11.9 Type 2 diabetes mellitus without complications; J45.909 Unspecified asthma, uncomplicated; F31.9 Bipolar disorder, unspecified; F20.9 Schizophrenia, unspecified; Z98.890 Other specified postprocedural states; Z79.899 Other long term (current) drug therapy
CPT/HCPCS: 99281

== ENCOUNTER 2021-05-07 19:04 | Emergency (ER) | payer BC ==
[2021-05-07 19:15] VITALS: BP 110/58
[2021-05-07 19:50] LABS: Basophils # (Auto) 0.1 K/mm3 (0.0-0.1); Basophils % (Auto) 1.2 % (0.0-1.8); Eosinophils # (Auto) 0.1 K/mm3 (0.0-0.4); Eosinophils % (Auto) 2.6 % (0.0-4.3); Hematocrit 40.1 % (30.3-42.9); Hemoglobin 13.1 gm/dl (10.1-14.3); Lymphocytes # (Auto) 1.9 K/mm3 (1.2-5.4); Lymphocytes % (Auto) 40.1 % (13.4-35.0); Mean Corpuscular HGB Conc 33 % (30-34); Mean Corpuscular Volume 98 fl (79-97); Monocytes # (Auto) 0.4 K/mm3 (0.0-0.8); Monocytes % (Auto) 7.8 % (0.0-7.3); Platelet Count 282 K/mm3 (140-440); Red Cell Distribution Width 14.2 % (13.2-15.2)
--- NOTE | 2021-05-07 20:08 | Emergency Department Report ---
ED General Adult HPI - General Chief complaint: Neuro Symptoms/Deficit Stated complaint: RIGHT ARM TINGLING Time Seen by Provider: 05/07/21 19:25 Source: patient Mode of arrival: Ambulatory Limitations: No Limitations - History of Present Illness Initial comments: Patient is a 51-year-old female presents emergency room with complaints of sore throat that began 2 days ago. She states that today her sore throat improved but now she has voice hoarseness and discomfort with talking. She is able to tolerate p.o. intake and her secretions. She states that she also has rhinorrhea and nasal congestion. Patient states that she also began having chest pain and right-sided arm tingling. She states that she believes this may be due to her diabetes. She states that she has not checked her sugar or taken her Metformin in approximately 1 month. She states that she supposed to be on metformin 500 mg twice daily. she denies any cough, SOB, leg swelling, calf pain, pleuritic pain, nausea, vomiting, diaphoresis, radiation of her pain. She states her only other past medical history is bipolar. No allergies to medications. She is currently on her menstrual cycle. - Related Data Home Medications Medication Instructions Recorded Confirmed Last Taken FLUoxetine [Prozac] 20 mg PO QDAY 04/26/13 11/04/14 10/05/14 Lurasidone HCl [Latuda] 20 mg PO HS 11/04/14 11/04/14 10/28/14 metFORMIN [Glucophage] 500 mg PO BID 11/04/14 11/04/14 08/10/14 Previous Rx's Medication Instructions Recorded Last Taken Type metFORMIN [Glucophage] 500 mg PO QAM #30 tablet 11/04/14 Unknown Rx Ibuprofen [Motrin] 800 mg PO Q8HR PRN #30 tablet 09/14/20 Unknown Rx Metaxalone [Skelaxin] 800 mg PO TID PRN #30 tablet 09/14/20 Unknown Rx Sulfamethoxazole/Trimethoprim 1 each PO BID 7 Days #14 tablet 01/27/21 Unknown Rx [Bactrim DS TAB] Nystas/Diphen/Xyl Visc/Mylanta 30 ml MM Q4H PRN #300 ml 05/07/21 Unknown Rx [Magic Mouthwash] Allergies Allergy/AdvReac Type Severity Reaction Status Date / Time No Known Allergies Allergy Verified 09/14/20 18:07 ED Review of Systems ROS: Stated complaint: RIGHT ARM TINGLING Other details as noted in HPI Comment: All other systems reviewed and negative ED Past Medical Hx - Past Medical History Previous Medical History?: Yes Hx Diabetes: Yes Hx Psychiatric Treatment: Yes (BIPOLAR / SCHIZOPHRENIA) Hx Asthma: Yes Additional medical history: back problems - Surgical History Past Surgical History?: Yes Additional Surgical History: Tubal Ligation, x 1 - Social History Smoking Status: Never Smoker Substance Use Type: None - Medications Home Medications: Home Medications Medication Instructions Recorded Confirmed Last Taken Type FLUoxetine [Prozac] 20 mg PO QDAY 04/26/13 11/04/14 10/05/14 History Lurasidone HCl [Latuda] 20 mg PO HS 11/04/14 11/04/14 10/28/14 History metFORMIN [Glucophage] 500 mg PO BID 11/04/14 11/04/14 08/10/14 History metFORMIN [Glucophage] 500 mg PO QAM #30 tablet 11/04/14 Unknown Rx Ibuprofen [Motrin] 800 mg PO Q8HR PRN #30 tablet 09/14/20 Unknown Rx Metaxalone [Skelaxin] 800 mg PO TID PRN #30 tablet 09/14/20 Unknown Rx Sulfamethoxazole/Trimethoprim 1 each PO BID 7 Days #14 tablet 01/27/21 Unknown Rx [Bactrim DS TAB] Nystas/Diphen/Xyl Visc/Mylanta 30 ml MM Q4H PRN #300 ml 05/07/21 Unknown Rx [Magic Mouthwash] ED Physical Exam - General Limitations: No Limitations General appearance: alert, in no apparent distress - Head Head exam: Present: atraumatic, normocephalic - Eye Eye exam: Present: normal appearance - ENT ENT exam: Present: normal orophraynx, mucous membranes moist, TM's normal bilaterally, normal external ear exam - Respiratory Respiratory exam: Present: normal lung sounds bilaterally. Absent: respiratory distress, wheezes, rales, rhonchi, stridor, chest wall tenderness, accessory muscle use, decreased breath sounds, prolonged expiratory - Cardiovascular Cardiovascular Exam: Present: regular rate, normal rhythm, normal heart sounds. Absent: systolic murmur, diastolic murmur, rubs, gallop - Neurological Exam Neurological exam: Present: alert, oriented X3 - Psychiatric Psychiatric exam: Present: normal affect, normal mood - Skin Skin exam: Present: warm, dry, intact ED Course Vital Signs 05/07/21 05/07/21 05/07/21 19:12 19:13 19:18 Temperature 98 F Pulse Rate 61 61 Respiratory 18 Rate Blood Pressure 110/58 O2 Sat by Pulse 100 100 Oximetry ED Medical Decision Making - Lab Data Result diagrams: 05/07/21 19:35 05/07/21 19:35 Lab Results 05/07/21 05/07/21 05/07/21 Range/Units 19:35 19:35 19:35 WBC 4.7 (4.5-11.0) K/mm3 RBC 4.10 (3.65-5.03) M/mm3 Hgb 13.1 (10.1-14.3) gm/dl Hct 40.1 (30.3-42.9) % MCV 98 H (79-97) fl MCH 32 (28-32) pg MCHC 33 (30-34) % RDW 14.2 (13.2-15.2) % Plt Count 282 (140-440) K/mm3 Lymph % (Auto) 40.1 H (13.4-35.0) % [place] % (Auto) 7.8 H (0.0-7.3) % Eos % (Auto) 2.6 (0.0-4.3) % Baso % (Auto) 1.2 (0.0-1.8) % Lymph # (Auto) 1.9 (1.2-5.4) K/mm3 [place] # (Auto) 0.4 (0.0-0.8) K/mm3 Eos # (Auto) 0.1 (0.0-0.4) K/mm3 Baso # (Auto) 0.1 (0.0-0.1) K/mm3 Seg Neutrophils % 48.3 (40.0-70.0) % Seg Neutrophils # 2.2 (1.8-7.7) K/mm3 VBG pH (7.320-7.420) Sodium 143 (137-145) mmol/L Potassium 5.6 H (3.6-5.0) mmol/L Chloride 107.6 H (98-107) mmol/L Carbon Dioxide 24 (22-30) mmol/L Anion Gap 17 mmol/L BUN 12 (7-17) mg/dL Creatinine 0.8 (0.6-1.2) mg/dL Estimated GFR > 60 ml/min BUN/Creatinine Ratio 15 % Glucose 92 (65-100) mg/dL Calcium 9.2 (8.4-10.2) mg/dL Total Bilirubin 0.20 (0.1-1.2) mg/dL AST 15 (5-40) units/L ALT 8 (7-56) units/L Alkaline Phosphatase 59 (35-129) units/L Troponin T < 0.010 (0.00-0.029) ng/mL Total Protein 7.5 (6.3-8.2) g/dL Albumin 4.2 (3.9-5) g/dL Albumin/Globulin Ratio 1.3 % HCG, Qual Negative (Negative) 05/07/21 Range/Units 19:35 WBC (4.5-11.0) K/mm3 RBC (3.65-5.03) M/mm3 Hgb (10.1-14.3) gm/dl Hct (30.3-42.9) % MCV (79-97) fl MCH (28-32) pg MCHC (30-34) % RDW (13.2-15.2) % Plt Count (140-440) K/mm3 Lymph % (Auto) (13.4-35.0) % [place] % (Auto) (0.0-7.3) % Eos % (Auto) (0.0-4.3) % Baso % (Auto) (0.0-1.8) % Lymph # (Auto) (1.2-5.4) K/mm3 [place] # (Auto) (0.0-0.8) K/mm3 Eos # (Auto) (0.0-0.4) K/mm3 Baso # (Auto) (0.0-0.1) K/mm3 Seg Neutrophils % (40.0-70.0) % Seg Neutrophils # (1.8-7.7) K/mm3 VBG pH 7.307 L (7.320-7.420) Sodium (137-145) mmol/L Potassium (3.6-5.0) mmol/L Chloride (98-107) mmol/L Carbon Dioxide (22-30) mmol/L Anion Gap mmol/L BUN (7-17) mg/dL Creatinine (0.6-1.2) mg/dL Estimated GFR ml/min BUN/Creatinine Ratio % Glucose (65-100) mg/dL Calcium (8.4-10.2) mg/dL Total Bilirubin (0.1-1.2) mg/dL AST (5-40) units/L ALT (7-56) units/L Alkaline Phosphatase (35-129) units/L Troponin T (0.00-0.029) ng/mL Total Protein (6.3-8.2) g/dL Albumin (3.9-5) g/dL Albumin/Globulin Ratio % HCG, Qual (Negative) - EKG Data EKG shows normal: sinus rhythm, axis, intervals Rate: normal - EKG Data 05/07/21 21:[address] elevation from normal early repolarization No STEMI - Radiology Data Radiology results: report reviewed Ordering Physician: EVER BISWAS Date of Service: 05/07/21 Procedure(s): XR chest routine 2V Accession Number(s): [id number] cc: EVER BISWAS Fluoro Time In Minutes: CHEST 2 VIEWS INDICATION / CLINICAL INFORMATION: Chest Pain. COMPARISON: 09/14/2020 FINDINGS: SUPPORT DEVICES: None. HEART / MEDIASTINUM: No significant abnormality. LUNGS / PLEURA: No significant pulmonary or pleural abnormality. No pneumothorax. ADDITIONAL FINDINGS: No significant additional findings. IMPRESSION: 1. No acute findings. Signer Name: Aldo Dawson MD Signed: 05/07/2021 8:31 PM Workstation Name: [id number] Transcribed By: SB Dictated By: ALDO DAWSON MD Electronically Authenticated By: ALDO DAWSON MD Signed Date/Time: 05/07/212030 DD/ 30 TD/TT: - Medical Decision Making Patient is a 51-year-old female presents emergency room with complaints of sore throat that began 2 days ago. She states that today her sore throat improved but now she has voice hoarseness and discomfort with talking. She is able to tolerate p.o. intake and her secretions. She states that she also has rhinorrhea and nasal congestion. Patient states that she also began having chest pain and right-sided arm tingling. She states that she believes this may be due to her diabetes. She states that she has not checked her sugar or taken her Metformin in approximately 1 month. She states that she supposed to be on metformin 500 mg twice daily. she denies any cough, SOB, leg swelling, calf pain, pleuritic pain, nausea, vomiting, diaphoresis, radiation of her pain. She states her only other past medical history is bipolar. No allergies to medications. She is currently on her menstrual cycle. Vitals are normal. EKG without evidence of ischemia or infarction. Chest x-ray with no acute process. Labs with mild hypokalemia at 5.6 and mildly decreased venous pH. Patient given 1 L normal saline and Kayexalate. Patient's heart score is 2, low risk for cardiac event, do not suspect ACS at this time. Patient's voice hoarseness appears consistent with laryngitis, no signs of peritonsillar abscess or epiglottitis at this time. Discussed supportive care and symptomatic treatment with patient. Discussed the importance of outpatient primary care and cardiology follow-up. Advised patient Please increase your fluid intake. May drink warm tea. Gargle with warm salt water. Please use medication as prescribed as needed. Rest your voice. Follow-up with your primary care doctor. Follow-up with a mopper. return to emergency room for any new or worsening symptoms. Critical care attestation.: If time is entered above; I have spent that time in minutes in the direct care of this critically ill patient, excluding procedure time. ED Disposition Clinical Impression: Hyperkalemia Upper respiratory infection Qualifiers: URI type: unspecified URI Qualified Code(s): J06.9 - Acute upper respiratory infection, unspecified Chest pain Qualifiers: Chest pain type: unspecified Qualified Code(s): R07.9 - Chest pain, unspecified Disposition: 01 HOME / SELF CARE / HOMELESS Is pt being admited?: No Does the pt Need Aspirin: No Condition: Stable Instructions: Laryngitis, Hyperkalemia, [id number], Nonspecific Chest Pain, Adult Additional Instructions: Please increase your fluid intake. May drink warm tea. Gargle with warm salt water. Please use medication as prescribed as needed. Rest your voice. Follow-up with your primary care doctor. Follow-up with a mopper. return to emergency room for any new or worsening symptoms. Prescriptions: Nystas/Diphen/Xyl Visc/Mylanta [Magic Mouthwash] 30 ml MM Q4H PRN #300 ml PRN Reason: sore throat Referrals: PRIMARY CARE, [Primary Care Provider] - 2-3 Days KOURTNEY CHAO MD [Staff Physician] - 2-3 Days [facility] [Provider Group] - 2-3 Days JERSON ZIEGLER MD [Staff Physician] - 2-3 Days Time of Disposition: 21:04 Print Language: MALIAN HEART Score - HEART Score History: Slightly suspicious EKG: Normal Age: 45-65 Risk factors: 1-2 risk factors Troponin: Troponin T < 0.010 ng/mL (0.00-0.029) 05/07/21 19:35 Troponin: < normal limit HEART Score: 2
[2021-05-07 20:14] LABS: Alanine Aminotransferase 8 units/L (7-56); Albumin 4.2 g/dL (3.9-5); BUN/Creatinine Ratio 15; Blood Urea Nitrogen 12 mg/dL (7-17); Calcium 9.2 mg/dL (8.4-10.2); Hemolysis Index 34
[2021-05-07] MEDS ORDERED: SODIUM CHLORIDE 0.9% 1000 ML 1,000 ML IV ONE (20:28)
[2021-05-07] MEDS ORDERED: SODIUM POLYSTYRENE 15 GM/60 ML ORAL LIQD PO ONE ×2 (20:28→20:29)
--- NOTE | 2021-05-07 20:36 | XRay Report ---
CHEST 2 VIEWS INDICATION / CLINICAL INFORMATION: Chest Pain. COMPARISON: 09/14/2020 FINDINGS: SUPPORT DEVICES: None. HEART / MEDIASTINUM: No significant abnormality. LUNGS / PLEURA: No significant pulmonary or pleural abnormality. No pneumothorax. ADDITIONAL FINDINGS: No significant additional findings. IMPRESSION: 1. No acute findings. Signer Name: Aldo Dawson MD Signed: 05/07/2021 8:31 PM Workstation Name: [id number]
== END 2021-05-07 21:51 | disposition home or self-care (01) ==
LOC: ED 19:04
DX: J06.9 Acute upper respiratory infection, unspecified (principal); E87.5 Hyperkalemia; E11.9 Type 2 diabetes mellitus without complications; F20.9 Schizophrenia, unspecified; Z98.890 Other specified postprocedural states; Z79.899 Other long term (current) drug therapy; Z98.51 Tubal ligation status
CPT/HCPCS: 36415; 71046; 80053; 82805; 84484; 84703; 85025; 93005; 96360; 99284; J7030; Q0162